=== PATIENT | female | born 1995 | race Caucasian/White ===

== ENCOUNTER 2024-09-22 14:38 | Outpatient (CLI) | payer OTHER, SELFPAY ==
--- NOTE | ~2024-09-22 | US_ITS ---
EXAMINATION: US OB <=14 wk fetus w TV DATE: 09/22/2024 15:45 INDICATION: Encounter for supervision of normal first trimester . Establish dating of pregna ncy. TECHNIQUE: Real-time pelvic ultrasound utilizing both a transvaginal and transabdominal probe was pe rformed. The interpreting radiologist was not present for the study. COMPARISON: None. FINDINGS: The uterus measures 11.1 x 6.7 x 5.1 cm. There is an intrauterine gestational sac. A yolk sac and fe andrés pole are identified. The crown rump length measures 10 mm, which correlates with an estimated ges tational age of 6 weeks and 6 days. heart motion is identified measuring 130 beats per minute ( bpm) by M-mode Doppler. The right ovary is not visualized. The left ovary measures 3.4 x 2.8 x 2.1 cm. And 1.3 similar anecho ic likely corpus luteum cyst in the left ovary. There is no free fluid in the pelvis. IMPRESSION: 1. Single living fetus with a heart rate of 130 bpm. 2. Gestational age by ultrasound of 6 weeks 6 day(s) +/- 4 day(s) with ultrasound estimated date of delivery (ROBERT) of 05/12/2025. Reviewed, dictated and finalized at location B. IMPRESSION: 1. Single living fetus with a heart rate of 130 bpm. 2. Gestational age by ultrasound of 6 weeks 6 day(s) +/- 4 day(s) with ultraso und estimated date of delivery (ROBERT) of 05/12/2025.
--- OUTSIDE RECORDS SUMMARY | 2024-09-22 15:58 | XMS_ITS | Encounter Summary ---
Author Organization [facility] Address 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
--- OUTSIDE RECORDS SUMMARY | 2024-09-22 15:58 | XMS_ITS | Clinical Summary ---
Author Organization [facility] Address [address] [place] [address] Phone Care Team Providers Care Coil Shaper Name Role Phone Rabia Roblero MD Primary Care Provider Allergies Active Allergy Reactions Criticality Noted Date Comments Lamotrigine Hives High 04/07/2019 Medications norgestimate-et hinyl estradioL (ORTHO TRI-CYCLEN) 0.18/0.215/0.25 mg-35 mcg (28) tablet Take 1 Tablet by mouth daily. 84 Tablet 3 3 Active metroNIDAZOLE (METROGEL) 0.75 % (37.5mg/5 gram) vaginal gel Insert 5 grams daily at bedtime for 5 nights 70 Gram 4 Active fluconazole (DIFLUCAN) 150 mg tablet Take 1 tab (150 mg) by mouth on day one. Take additional tab (150 mg) by mouth 3 days after initial dose 2 Tablet 4 Active Active Problems No known active problems Encounters Date Type Department Care Team Description 09/04/2024 External Device Data [facility]STRACTION Provider, Abstract 09/03/2024 External Device Data [facility] Provider, Abstract 08/31/2024 External Device Data [facility] Provider, Abstract 08/17/2024 External Device Data [facility] Provider, Abstract 07/22/2024 External Device Data [facility] Provider, Abstract 07/21/2024 External Device Data [facility] Provider, Abstract 07/20/2024 External Device Data [facility] Provider, Abstract from Last 3 Months Family History Medical History Relation Name Comments Ovarian Cancer Maternal Grandmother Relation Name Status Comments Maternal Grandmother Social History Tobacco Use Types Packs/Day Years Used Date Smoking Tobacco: Never Passive Smoke Exposure: Never Smokeless Tobacco: Never Tobacco Cessation:Counseling Given: Not Answered Alcohol Use Standard Drinks/Week Comments Yes 2 (1 standard drink = 0.6 oz pur e alcohol) Socially Comments No Sex and Gender Information Value Date Recorded Sex Assigned at Not on file 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 Gender Identity Not on file Sexual Orientation Not on file Last Filed Vital Signs Vital Sign Reading Time Taken Comments Blood Pressure 124/74 05/25/2024 11:21 AM AUTO ELECTRICAL TECHNICIAN Pulse - - Temperature - - Respiratory Rate - - Oxygen Saturation - - Inhaled Oxygen Concentration - - Weight 103.2 kg (227 lb 9.6 oz) 024 11:21 AM AUTO ELECTRICAL TECHNICIAN Height 166 cm (5' 5.35 ) 05/25/2024 11: 21 AM AUTO ELECTRICAL TECHNICIAN Body Mass Index 37.47 05/25/2024 11:21 AM AUTO ELECTRICAL TECHNICIAN Plan of Treatment Health Maintenance Due Date Last Done Comments HEPATITIS B VACCINES (1 of 3 - 19+ 3-dose series) 2012 DTAP/TDAP/TD VACCINES (2 - Td or Tdap) 10/21/2021 10/22/2011 HPV/Cotest 2023 INFLUENZA VACCINE (#1) 2024 , 04/13/2019, 05/15/2018, Additional history exists COVID-19 Vaccine ( season) 2024 04/12/2021 CERVICAL CANCER SCREENING 05/25/2027 PAP SMEAR 05/25/2027 05/25/2024, 12/28, 04/07/2019 PAP SMEAR 05/25/2027 05/25/2024, 12/28, 04/07/2019 HPV VACCINES Aged Out No longer eligi ble based on patient's age to complete this topic Procedures Procedure Name Priority Date/Time Associated Diagnosis Comments CERV/VAG CYTO AGE BASED SCREEN PAP Routine 05/25/2024 11:40 AM AUTO ELECTRICAL TECHNICIAN Encounter for gynecological examination without abnormal finding from Last 3 Months or Most Recently Relevant to Health Maintenance Results * CERV/VAG CYTO AGE BASED SCREEN PAP (05/25/2024 11:40 AM AUTO ELECTRICAL TECHNICIAN) COMMENT (PAP): [facility] [place] Comment: This order for age-based cervical cancer and STI screening follows ACOG guidelines(PB 168, 140, FKN121). See individual assays for performing site location. CLINICAL INFORMATION [facility] [place] Comment:None given LAST MENSTRUAL PERIOD [facility] [place] Comment:05/04/24 PREV PAP: [facility] [place] Comment:None given PREV BX: [facility] [place] Comment:None given SOURCE [facility] [place] Comment:Endocervix ADEQUACY: [facility] [place] Comment: Satisfactory for evaluation. Endocervical/transformation zone component absent. PAP INTERP [facility] [place] Comment: Cytology Results: Negative for intraepithelial lesion or malignancy. CYTOLOGY INFECTION [facility] [place] Comment: Shift in vaginal nancy suggestive of bacterial vaginosis. COMMENT (PAP TEST) [facility] [place] Comment: This Pap test has been evaluated with computer assisted technology. FURNACE DOOR TENDER: est [facility] [place] Comment: LMT, CT(ASCP) CT screening location: [place] [address] [place] [address] REVIEW FURNACE DOOR TENDER: [facility] Comment: CALL, CT(ASCP) CT Screening location: [facility] [address] [place] [address] [address] [facility] Comment: EXPLANATORY NOTE: The Pap is a screening test for cervical cancer. It is not a diagnostic test and is subject to false negative and false positive results. It is most reliable when a satisfactory sample, regularly obtained, is submitted with relevant clinical findings and history, and when the Pap result is evaluated along with historic and current clinical information. HPV E6/E7 Not Detected Not Detected [facility] [place] Comment: Methodology: Firmware Manager-Mediated Amplification This assay detects E6/E7 viral messenger RNA (mRNA) from 14 high-risk HPV types (16,18,31,33,35,39,45,51,52,56,58,59,66,68). Cervical sources are required for HPV testing. If a vaginal source from a patient who has had a total hysterectomy with removal of cervix was submitted, please contact the testing laboratory for alternative testing options. For additional information, please refer to http://education.Trendient/faq/MEF292q2 (This link if provided for information/ educational purposes only.) [facility] Performed [facility]: [facility] [address] [phone] Arnold Sanchez MD SL Genital SWAB OF ENDOCERVIX / Unknown 05/25/2024 11:40 AM AUTO ELECTRICAL TECHNICIAN 05/26/2024 2:14 AM AUTO ELECTRICAL TECHNICIAN us Dagmar Zavala MD PATHOLOGY/CYTOLOGY ORDERAB LES Final Result [facility] [phone] [facility] [address] [phone] from Last 3 Months or Most Recently Relevant to Health Maintenance Insurance [employer] [id number] Care Teams Coil Shaper Relationship Specialty Start Date End Date Rabia Roblero MD PCP - General Internal Medicine 04/07/19
--- OUTSIDE RECORDS SUMMARY | 2024-09-22 15:58 | XMS_ITS | Encounter Summary ---
Author Organization [facility] Address 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
--- OUTSIDE RECORDS SUMMARY | 2024-09-22 15:58 | XMS_ITS | Clinical Summary ---
Author Organization [facility] Address [address] [facility], [facility] [address] [place] [address] Phone Care Team Providers Care Tank Officer Name Role Phone Nicko Hameed MD Unavailable Nadia Liu Primary Care Provider + Allergies Active Allergy Reactions Criticality Noted Date Comments Lamotrigine Rash 05/15/2018 Medications Multiple Vitamin (MULTIVITAMIN PO) Take by mouth. Activ e Lactobacillus (PROBIOTIC ACIDOPHILUS PO) Take by mouth. Active Albuterol-Budeso nide (Airsupra) 90-80 MCG/ACT Aerosol take 2 Puffs by inhalation every 4 hours as needed (shortness of breath, cough or wheezing). 1 g 5 Active Benzonatate 200 MG Capsule Take 1 Capsule by mouth 3 times daily as needed for Cough. 30 Capsule 5 Active albuterol 108 (90 Base) MCG/ACT Aerosol Solution take 2 Puffs by inhalation every 4 hours as needed for Wheezing. 18 g 5 Active Active Problems Problem Noted Date Diagnosed Date Attention deficit hyperactivity disorder, inatte ntive type 06/26/2018 Adjustment disorder with anxiety 06/26/2018 BMI 39.0-39.9,adult 05/15/2018 Resolved Problems Problem Noted Date Diagnosed Date Resolved Date Acute appendicitis with loca lized peritonitis, without perforation, abscess, or gangrene 07/21/2021 07/22/2021 Encounters Date Type Department Care Team Description 09/13/2024 Travel 08/27/2024 Results Follow-Up [facility] [address] [place] [address] Nadia Liu PAC 08/27/2024 Travel 08/27/2024 Telephone [facility] [address] [place] [phone] Nadia Liu PAC Follow-up 08/12/2024 10:00 AM DIRECTOR TRIAL Office Visit [facility] [address] [place] [address] Nadia Liu PAC Pneumonia of both lungs due to infectious organism, unspecified part of lung (Primary Dx) Discharge Disposition: Discharged to home or Selfcare 08/12/2024 Telephone [facility] [address] [place] [phone] Nadia Liu PAC Medication Management 08/10/2024 Travel from Last 3 Months Immunizations Immunization Administration Dates Next Due Covid-19, Mrna, Lnp-s, Pf, 3 0 Mcg/0.3 Ml Dose ([employer]) 04/12/2021 Influenza Vaccine greater than 3 yrs 03/31/2014 Influenza Vaccine, Quadrivalent, PF 04/03/2020,1 ,05/15/2018 Influenza, Injectable, Quadrivalent 03/31/2016 TDAP Vaccine 10/22/2011 Family History Medical History Relation Name Comments No Known Problems Brother Hypertension Father Hypertension Maternal Grandfather Ovarian Cancer Maternal Grandmother No Known Problems Mother No Known Problems Paternal Grandfather Relation Name Status Comments Brother Alive Father Alive Maternal Grandfather Maternal Grandmother Mother Alive Paternal Grandfather Paternal Grandmother Social History Tobacco Use Types Packs/Day Years Used Date Smoking Tobacco: Never Smokeless Tobacco: Never Tobacco Cessation:Counseling Given: Not Answered Alcohol Use Standard Drinks/Week Comments Yes 0 (1 standard drink = 0.6 oz pur e alcohol) weekend drinker [facility] Utilities Answer Date Recorded In the past 12 months has [employer] gas, oil, or water [employer] threatened to shut off services in your home? No 08/10/2024 Social Connection and Isolat ion Panel [NHANES] Answer Date Recorded In a typical week, how many times do you talk on the phone with family, friends, or neighbors? More than three times a week 08/10/2024 How often do you get togethe r with friends or relatives? More than three times a week 08/10/2024 How often do you attend chur ch or hindu services? Never 08/10/2024 Do you belong to any clubs o r organizations such as sikh groups, unions, fraternal or athletic groups, or school groups? No 08/10/2024 How often do you attend meet ings of the clubs or organizations you belong to? Never 08/10/2024 Are you , , di vorced, , never , or living with a partner? Never 08/10/2024 AUDIT-C Answer Date Recorded Q1: How often do you have a drink containing alc ohol? 2-3 times a week 08/10/2024 Q2: How many drinks containi ng alcohol do you have on a typical day when you are drinking? 1 or 2 08/10/2024 Q3: How often do you have si x or more drinks on one occasion? Less than monthly 08/10/2024 Overall Financial Resource Strain (CARDIA) Answe r Date Recorded How hard is it for you to pa y for the very basics like food, housing, medical care, and heating? Not hard at all 08/10/2024 PHQ-2 Answer Date Recorded Total Score - Questions 1-9 0 07/31 [facility] - Occupational Stress Questionnaire Answer Date Recorded Do you feel stress - tense, restless, nervous, or anxious, or unable to sleep at night because your mind is troubled all the time - these days? Not at all 08/10/2024 Exercise Vital Sign Answer Date Recorde d On average, how many days pe r week do you engage in moderate to strenuous exercise (like a brisk walk)? 4 days 08/10/2024 On average, how many minutes do you engage in exercise at this level? 60 min 08/10/2024 Hunger Vital Sign Answer Date Recorded Within the past 12 months, y ou worried that your food would run out before you got the money to buy more. Never true 08/10/19 25 Within the past 12 months, t he food you bought just didn't last and you didn't have money to get more. Never true 08/10/2024 PRAPARE - Transportation Answer Date Re corded In the past 12 months, has l ack of transportation kept you from medical appointments or from getting medications? No 07/31 In the past 12 months, has l ack of transportation kept you from meetings, work, or from getting things needed for daily living? No 08/10/2024 Housing Stability Vital Sign Answer Aris e Recorded In the last 12 months, was t here a time when you were not able to pay the mortgage or rent on time? No 08/10/2024 In the past 12 months, how m any times have you moved where you were living? 0 08/10/2024 At any time in the past [address] [facility], were you homeless or living in a group home (including now)? No 08/10/2024 Education Answer Date Recorded What is the highest level of school you have completed or the highest degree you have received? Associate degree: occupational, technical, or vocational program 08/27/2022 Sexually Active Control Partners Comments Not Currently Male Comments No Sex and Gender Information Value Date Recorded Sex Assigned at Not on file Legal Sex Female 2:45 PM DIRECTOR TRIAL Gender Identity Not on file Sexual Orientation Not on file Last Filed Vital Signs Vital Sign Reading Time Taken Comments Blood Pressure 118/84 08/12/2024 9:57 AM DIRECTOR TRIAL Pulse 69 08/12/2024 9:57 AM DIRECTOR TRIAL Temperature 36.6 C (97.8 F) 08/12/2024 9:57 AM DIRECTOR TRIAL Respiratory Rate 14 04/30/2024 11:48 AM CDT Oxygen Saturation 100% 08/12/2024 9:57 AM DIRECTOR TRIAL Inhaled Oxygen Concentration - - Weight 99.8 kg (220 lb) 08/12/2024 9:57 AM DIRECTOR TRIAL Height 165.1 cm (5' 5 ) 08/12/2024 9:57 AM DIRECTOR TRIAL Body Mass Index 36.61 08/12/2024 9:57 AM DIRECTOR TRIAL Plan of Treatment Upcoming Encounters Date Type Department Care Team (Late st Contact Info) Description 11/04/2024 10:45 AM CDT Office Visit [facility] [address] [place] [address] Nadia Liu, PAC [address] [place] [address] Health Maintenance Due Date Last Done Comments Hepatitis C Virus (HCV) Screening 1993 Hepatitis B Immunization (1 of 3 - 19+ 3-dose series) 2012 Td Immunization Every 10 Years (Adults With 1 Tdap) 10/21/2021 10/22/2011 Pap Smear 04/07/2022 04/07/2019 Influenza Immunization (#1) 02/29/202410/2019, 04/13/2019, 05/15/2018, Additional history exists SARS-COV-2 Immunization ( - 2023- season) 2024 04/12/2021, 03/14/2021 Cervical Cancer Screening (CCS) 05/25/2029 HPV/Cotest 05/25/2029 05/25/2024 Respiratory Syncytial Virus (RSV) Immunization (Adult) (1 - 1-dose 75+ series) 2068 Meningococcal Immunization (ACWY) Aged Out No longer eligible based on patient's age to complete this topic Pneumococcal Immunization Combined Aged Out No longer eligible based on patient's age to complete this topic Rotavirus Immunization Aged Out No lo nger eligible based on patient's age to complete this topic Procedures Procedure Name Priority Date/Time Associated Diagnosis Comments RUBELLA IGM ANTIBODY - TORCH Routine 09/13/2024 11:09 AM CDT Amenorrhea RUBELLA IGG ANTIBODY - TORCH Routine 09/13/2024 11:09 AM CDT Amenorrhea HSV TYPE II IGG ANTIBODY Routine 09/13/2024 11:09 AM CDT Amenorrhea HSV TYPE I IGG ANTIBODY Routine 09/13/2024 11:09 AM CDT Amenorrhea CMV IGM ANTIBODY - TORCH Routine 09/13/2024 11:09 AM CDT Amenorrhea CMV IGG ANTIBODY - TORCH Routine 09/13/2024 11:09 AM CDT Amenorrhea TYPE & SCREEN (CROSSMATCH CONVERTIBLE) Routine 09/13/2024 11:09 AM CDT Amenorrhea [facility]/DM TOXOPLASMA AB IGM LAB TEST Routine 09/13/2024 11:09 AM CDT Amenorrhea [facility]/DM AB TOXOPLASMA, IGG LAB TEST Routine 09/13/2024 11:09 AM CDT Amenorrhea COMPLETE BLOOD COUNT (CBC) WITHOUT DIFF Routine 09/13/2024 11:09 AM CDT Amenorrhea HIV 1 & 2 ANTIBODY & ANTIGEN SCREEN Routine 09/13/2024 11:09 AM CDT Amenorrhea HCG BETA SUBUNIT SERUM QUANT Routine 09/13/2024 11:09 AM CDT Amenorrhea TORCH ANTIBODY PANEL Routine 09/13/2024 11:09 AM CDT Amenorrhea RPR SCREEN ONLY Routine 09/13/2024 11:09 AM CDT Amenorrhea HEPATITIS B SURFACE ANTIGEN (HBSAG) Routine 09/13/2024 11:09 AM CDT Amenorrhea PARVOVIRUS B19 PCR, PARVP Routine 09/13/2024 11:09 AM CDT Amenorrhea HERPES ZOSTER (VARICELLA) IGG Routine 09/13/2024 11:09 AM CDT Amenorrhea CULTURE, URINE Routine 09/13/2024 11:09 AM CDT Amenorrhea PROGESTERONE Routine 08/30/2024 11:08 AM DIRECTOR TRIAL Amenorrhea PROGESTERONE Routine 08/30/2024 11:08 AM DIRECTOR TRIAL Amenorrhea HCG BETA SUBUNIT SERUM QUANT Routine 08/30/2024 11:08 AM DIRECTOR TRIAL Amenorrhea HCG BETA SUBUNIT SERUM QUANT Routine 08/27/2024 12:49 PM DIRECTOR TRIAL Amenorrhea from Last 3 Months Results * HIV 1 & 2 ANTIBODY & ANTIGEN SCREEN (09/13/2024 11:09 AM CDT) HIV 1 & 2 ANTIBODY & ANTIGEN SCREEN NON DETECTED NON DETECTED 09/13/2024 11:45 PM CDT [facility] Blood Venipuncture / Unknown 09/13/2024 11:09 AM CDT 09/13/2024 11:40 AM CDT us Alton Gonzalez MD LAB SEND OUTS Final Re sult [facility] [address] [place] [address], * RUBELLA IGM ANTIBODY - TORCH (09/13/2024 11:09 AM CDT) RUBELLA IGM <0.2 <1.1 AI 09/14/2024 12:00 AM CDT [facility] Comment: <0.8 Negative. No detectable Rubella IgM antibody. 0.9-1.0 Equivocal >= 1.1 Positive Without a history of exposure to rubella or symptoms consistent with rubella, the rubella IgM result is difficult to interpret. False-positive serum rubella IgM tests may occur due to the cross reaction with rheumatoid factor or other viral infections. Rubella IgM may also persist for more than 12 months after vaccination or natural infection. Avidity testing and detection of wild-type rubella virus can be used to resolve uncertainties in the serological evaluation of suspected cases. For a serological diagnosis of congenital rubella in the period, antibody to rubella virus should be measured in both and maternal sera. If IgM is detected in a infant's serum, it is probable that transplacental rubella infection has occurred. Antibody testing was performed by multiplex flow immunoassay on the [employer] platform. Blood Venipuncture / Unknown 09/13/2024 11:09 AM CDT 09/13/2024 11:40 AM CDT Alton Gonzalez MD CHEMISTRY ORDERABLES Fin al Result [facility] [address] [place] [address], [place] * (ABNORMAL) RUBELLA IGG ANTIBODY - TORCH (09/13/2024 11:09 AM CDT) RUBELLA IMMUNITY Nonimmune( A) Immune, Invalid 09/14/2024 5:27 AM CDT [facility] Blood Venipuncture / Unknown 09/13/2024 11:09 AM CDT 09/13/2024 11:40 AM CDT Narrative [facility] - 09/14/2024 5:27 AM CDT Antibody testing was performed by multiplex flow immunoassay on the [employer] platform. Alton Gonzalez MD CHEMISTRY ORDERABLES Fin al Result Performing Organization Address [facility] Co de Phone Number [facility] [address] [place] [address], [place] * HSV TYPE II IGG ANTIBODY (09/13/2024 11:09 AM CDT) HSV TYPE 2 IGG AB <0.2 <1.1 AI 09/14/2024 12:01 AM CDT [facility] Comment: <0.9 Negative. No detectable HSV-2 IgG antibody. 0.9 - 1.0 Equivocal >=1.1 Positive Antibody testing was performed by multiplex flow immunoassay on the [employer] platform. Blood Venipuncture / Unknown 09/13/2024 11:09 AM CDT 09/13/2024 11:40 AM CDT Alton Gonzalez MD CHEMISTRY ORDERABLES Fin al Result [facility] [address] [place] [address], [place] * HSV TYPE I IGG ANTIBODY (09/13/2024 11:09 AM CDT) HSV TYPE 1 IGG AB <0.2 <1.1 AI 09/14/2024 12:01 AM CDT [facility] Comment: <0.9 Negative. No detectable HSV-1 IgG antibody. 0.9 - 1.0 Equivocal >=1.1 Positive Antibody testing was performed by multiplex flow immunoassay on the [employer] platform. Blood Venipuncture / Unknown 09/13/2024 11:09 AM CDT 09/13/2024 11:40 AM CDT Alton Gonzalez MD CHEMISTRY ORDERABLES Fin al Result Performing Organization Address City/[facility]/ZIP Co de Phone Number [facility] [address] [place] [address], [place] * CMV IGM ANTIBODY - TORCH (09/13/2024 11:09 AM CDT) CMV IgM <0.2 <1.1 AI 09/14/2024 12:00 AM CDT [facility] Comment: <= 0.8 Negative. No detectable CMV IgM antibody. 0.9 - 1.0 Equivocal >=1.1 Positive Antibody testing was performed by multiplex flow immunoassay on the [employer] platform. Blood Venipuncture / Unknown 09/13/2024 11:09 AM CDT 09/13/2024 11:40 AM CDT Alton Gonzalez MD CHEMISTRY ORDERABLES Fin al Result [facility] [address] [place] [address], [place] * CMV IGG ANTIBODY - TORCH (09/13/2024 11:09 AM CDT) CMV IgG <0.2 AI 09/14/2024 12:00 AM CDT [facility] Comment: <= 0.8 Negative. No detectable CMV IgG antibody. 0.9 - 1.0 Equivocal >=1.1 Positive Antibody testing was performed by multiplex flow immunoassay on the [email or web address] platform. Blood Venipuncture / Unknown 09/13/2024 11:09 AM CDT 09/13/2024 11:40 AM CDT Alton Gonzalez MD CHEMISTRY ORDERABLES Fin al Result [facility] [address] [place] [address], * PARVOVIRUS B19 PCR, PARVP (09/13/2024 11:09 AM CDT) PARVOVIRUS B19 BY RAPID PCR Negative Negative 09/16/2024 5:04 PM CDT [facility] [place] Comment: ADDITIONAL INFORMATION This assay has only been validated for the detection of genotype 1 parvovirus B19 and its ability to detect the less common genotypes 2 and 3 is unknown. This test was developed and its performance characteristics determined by [facility] in a manner consistent with CLIA requirements. This test has not been cleared or approved by the U.S. Food and Drug Administration. SOURCE PLASMA 09/16/2024 5:04 PM CDT [facility] Comment: Test Performed by: [facility] [address] Tire Wrapper: Long Sousa Ph.D.; CLIA# [id number] Blood Venipuncture / Unknown 09/13/2024 11:09 AM CDT 09/13/2024 11:39 AM CDT Alton Gonzalez MD LAB SEND OUTS Final Re sult [facility] * HERPES ZOSTER (VARICELLA) IGG (09/13/2024 11:09 AM CDT) VARICELLA ZOSTER IGG 1.3 >=1.1 AI 09/14/2024 12:00 AM CDT [facility] Blood Venipuncture / Unknown 09/13/2024 11:09 AM CDT 09/13/2024 11:40 AM CDT Narrative [facility] - 09/14/2024 12:00 AM CDT <= 0.8 Negative. No detectable VZV IgG antibody. 0.9 - 1.0 Equivocal >=1.1 Positive Antibody testing was performed by multiplex flow immunoassay on the [employer] platform. Alton Gonzalez MD IMMUNOLOGY ORDERABLES Fi nal Result [facility] [address] [place] [address], * TYPE & SCREEN (CROSSMATCH CONVERTIBLE) (09/13/2024 11:09 AM CDT) ABO TYPING O 09/13/2024 1:19 PM CDT [facility] BLOOD BANK RH Positive 09/13/2024 1:19 PM CDT [facility] BLOOD BANK ABSC Negative 09/13/2024 1:19 PM CDT [facility]OD [facility] Blood Venipuncture / Unknown 09/13/2024 11:09 AM CDT 09/13/2024 12:37 PM CDT Alton Gonzalez MD BLOOD BANK ORDERABLES Ed ited Result - Final [facility] BLOOD BANK [address] [place] [address] * TOXOPLASMA ANTIBODY IGM (09/13/2024 11:09 AM CDT) TOXOPLASMA IGM ANTIBODY <3.0 <8.0 AU/mL 09/14/2024 8:58 AM CDT [facility] TOXOPLASMA INTERPRETATION 09/14/2024 8:58 AM CDT [facility] Comment:When Toxoplasma IgG and Toxoplasma IgM results are negative, no serological evidence of infection with Toxoplasma is evident. Blood Venipuncture / Unknown 09/13/2024 11:09 AM CDT 09/13/2024 11:40 AM CDT Narrative [facility] - 09/14/2024 8:58 AM CDT < 8.0 AU/mL Negative >= 8.0 AU/mL Equivocal and < 10 AU/mL >= 10.0 AU/mL Positive Alton Gonzalez MD CHEMISTRY ORDERABLES Fin al Result Performing Organization Address City/[facility] Co de Phone Number [facility] [address] [place] [address], [place] * TOXOPLASMA ANTIBODY IGG (09/13/2024 11:09 AM CDT) TOXOPLASMA IGG ANTIBODY <3.0 IU/mL 09/14/2024 4:05 AM CDT [facility] Comment: <=9 Negative. No detectable T. gondii IgG antibody. 10-11 Equivocal >=12 Positive Antibody testing was performed by multiplex flow immunoassay on the [employer] platform. Blood Venipuncture / Unknown 09/13/2024 11:09 AM CDT 09/13/2024 11:40 AM CDT Alton Gonzalez MD CHEMISTRY ORDERABLES Fin al Result Performing Organization Address [facility] Co de Phone Number [facility] [address] [place] [address], [place] * RPR SCREEN ONLY (09/13/2024 11:09 AM CDT) RPR NONREACTIVE NONREACTIVE 09/14/2024 7:20 AM CDT [facility] Blood Venipuncture / Unknown 09/13/2024 11:09 AM CDT 09/13/2024 11:40 AM CDT Alton Gonzalez MD IMMUNOLOGY ORDERABLES Fi nal Result Performing Organization Address [facility] Co de Phone Number [facility] [address] [place] [address], [place] * HEPATITIS B SURFACE ANTIGEN (HBSAG) (09/13/2024 11:09 AM CDT) Pathologist [facility] HEPATITIS B SURFACE ANTIGEN NON DETECTED NON DETECTED 09/13/2024 12:50 PM CDT [facility] Comment:A nonreactive test r esult does not exclude the possibility of exposure to or infection with Hepatitis B virus. A nonreactive test result in individuals with prior exposure to hepatitis B may be due to antigen levels below the detection limit of this assay or lack of antigen reactivity to the antibodies in this assay. Blood Venipuncture / Unknown 09/13/2024 11:09 AM CDT 09/13/2024 11:40 AM CDT us Alton Gonzalez MD CHEMISTRY ORDERABLES Fin al Result [facility] [address] [place] [address] * (ABNORMAL) COMPLETE BLOOD COUNT (CBC) WITHOUT DIFF (09/13/2024 11:09 AM CDT) [facility] WBC 8.18 4.00 - 12.00 10(3)/mcL 09/13/2024 11:47 AM CDT [facility] RBC 3.66(L) 3.80 - 5.30 10(6)/mcL 09/13/2024 11:47 AM CDT [facility] HEMOGLOBIN (HGB) 11.6(L) 12.0 - 15.8 g/dL 09/13/2024 11:47 AM CDT [facility] HEMATOCRIT (HCT) 35.5(L) 36.0 - 47.0 % 09/13/2024 11:47 AM CDT [facility] MCV 97.0(H) 82.0 - 96.0 fL 09/13/2024 11:47 AM CDT [facility] MCH 31.7 26.0 - 34.0 pg 09/13/2024 11:47 AM CDT [facility] MCHC 32.7 31.0 - 36.0 g/dL 09/13/2024 11:47 AM CDT [facility] PLATELET COUNT 305 140 - 440 10(3)/mcL 09/13/2024 11:47 AM CDT [facility] RDW 13.1 11.8 - 15.5 % 09/13/2024 11:47 AM CDT [facility] MPV 10.8 9.7 - 12.4 fL 09/13/2024 11:47 AM CDT [facility] Blood Venipuncture / Unknown 09/13/2024 11:09 AM CDT 09/13/2024 11:39 AM CDT us Alton Gonzalez MD HEMATOLOGY ORDERABLES Fi nal Result [facility] [address] [place] [address] * (ABNORMAL) HCG BETA SUBUNIT SERUM QUANT (09/13/2024 11:09 AM CDT) Only the most recent of3 resultswithin the time period is included. HCG BETA SUBUNIT, QUANT 25737.59( H) 0.00 - 5.00 mIU/mL 09/13/2024 3:48 PM CDT [facility] Blood Venipuncture / Unknown 09/13/2024 11:09 AM CDT 09/13/2024 11:40 AM CDT Narrative [facility] - 09/13/2024 3:48 PM CDT HCG levels should be interpreted with consideration given to the patient's clinical condition. No currently available hCG test is approved by the FDA for use as a tumor marker. hCG results <5 mIU/mL are considered negative. Weeks post LMP hCG range (mIU/mL) 1 - 10 202 - 231,000 11 - 15 22,536 - 234,990 16 - 22 8,007 - 50,064 23 - 40 1,600 - 49,413 The concentration of hCG in maternal serum rises rapidly in early , hCG levels less than 25 mIU/mL do not exclude . A further sample should be tested after 48 hours if is suspected. Heterophilic antibodies present in the serum of some patients may cause a false positive result in the assay. Before making a diagnosis of malignancy based on elevated hCG, confirm results with a urine hCG. us Alton Gonzalez MD CHEMISTRY ORDERABLES Fin al Result Performing Organization Address City/[facility]/ZIP Co de Phone Number [facility] [address] [place] [address] * CULTURE, URINE (09/13/2024 11:09 AM CDT) CULTURE RESULTS Mixed Growth of One or More Distal Urethral Contaminants 09/14/2024 10:11 PM CDT [facility] Culture URINE SPECIMEN OBTAINED BY CLEAN CATCH PROCEDURE / Unknown Non-Phlebotomy Collection / Unknown 09/13/2024 11:09 AM CDT 09/13/2024 11:41 AM CDT Alton Gonzalez MD MICROBIOLOGY - GENERAL O RDERABLES Final Result Performing Organization Address [facility] Co de Phone Number [facility] [address] [place] [address], * PROGESTERONE (08/30/2024 11:08 AM DIRECTOR TRIAL) PROGESTERONE 25.2 ng/mL 08/30/2024 12:51 PM DIRECTOR TRIAL [facility] Blood Venipuncture / Unknown 08/30/2024 11:08 AM DIRECTOR TRIAL 08/30/2024 12:02 PM DIRECTOR TRIAL Narrative [facility] - 08/30/2024 12:51 PM DIRECTOR TRIAL FEMALE NORMAL RANGE <0.5 NG/ML FOLLICULAR 1.2-15.9 NG/ML LUTEAL <0.5 NG/ML POSTMENOPAUSAL MALE NORMAL RANGE <0.5 NG/ML us Nadia BETHEA CHEMISTRY ORDERABLES Fin al Result Performing Organization Address City/[facility]/ZIP Co de Phone Number [facility] [address] [place] [address] from Last 3 Months Insurance MEDICAID [place] Advance Directives * Full Code (Latest Code Status on File) Date Activated Date Inactivated Comments 07/21/2021 7:14 PM 07/22/2021 3:44 PM CPR-Full Theodore atment: FULL ARREST: Attempt Resuscitation/CPR wit intubation and mechanical ventilation. PRE-ARREST: Use entire range of life support measures to stabilize the patient. * No Code Status Date Activated Date Inactivated Comments 02/03/2020 10:29 AM 07/21/2021 2:43 PM new pharmacy , 02/03/20 Care Teams Tank Officer Relationship Specialty Start Date End Date Nadia Liu PAC [address] [place] [address] PCP - General Physician Water Treatment Plant Repairer 08/12/24 Nicko Hameed MD [address] [address] [id number] Consulting Physician Colon and Rectal Surgery 08/07/21
--- OUTSIDE RECORDS SUMMARY | 2024-09-22 15:58 | XMS_ITS | Encounter Summary ---
Author Organization [facility] Address 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
--- OUTSIDE RECORDS SUMMARY | 2024-09-22 15:58 | XMS_ITS | Clinical Summary ---
Author Organization [address] Address [address] [place] [address] Care Team Providers [employer] Supervisor Name Role Phone Nadia Liu Primary Care Provider Allergies Active Allergy Reactions Criticality Noted Date Comments Lamotrigine Hives,Rash High 05/15/2018 Medications No known medications Active Problems Problem Noted Date Diagnosed Date Hypokalemia 08/08/2024 Pneumonia of left lower lobe due to infectious o rganism 08/07/2024 Encounters Date Type Department Care Team Description 08/07/2024 5:07 PM BUSINESS OBJECTS CONSULTANT - 08/08/2024 3:19 PM BUSINESS OBJECTS CONSULTANT Emergency [facility] Acute Medicine [address] [place] [id number] Magaly Chisholm MD Wala, MD Jean Marie Vance, MD Ralf Elizalde, Grupo De La O Jr., MD Pneumonia of left lower lobe due to infectious organism (Primary Dx); Hypokalemia; Wheezing; Acute hypoxemic respiratory failure (HCC); Fever, unspecified fever cause; Shortness of breath Discharge Disposition: Discharge to home or self care 08/07/2024 2:15 PM BUSINESS OBJECTS CONSULTANT Office Visit [facility] at [address] [place] [phone] Cristal Addison NP Shortness of breath (Primary Dx); Fever, unspecified fever cause; Hypoxemia 07/27/2024 Telephone [facility] Accountable Care Organization [address] [place] [id number] Diandra Morocho MA Unsuccessful Phone Call 1 (AWV SCHEDULING) from Last 3 Months Surgical History Surgery Date Site/Laterality Comments APPENDECTOMY Social History Tobacco Use Types Packs/Day Years Used Date Smoking Tobacco: Never Tobacco Cessation:Counseling Given: Not Answered AUDIT-C Answer Date Recorded Q1: How often do you have a drink containing alc ohol? 2-3 times a week 08/08/2024 Q2: How many drinks containi ng alcohol do you have on a typical day when you are drinking? 1 or 2 08/08/2024 Q3: How often do you have si x or more drinks on one occasion? Never 08/08/2024 Personal Safety Answer Date Recorded Have you ever been in or are you currently in a harmful physical or emotional relationship or is someone making you feel afraid or unsafe? Denies 08/08/2024 Comments No Sex and Gender Information Value Date Recorded Sex Assigned at Not on file Legal Sex Female 12:42 PM BUSINESS OBJECTS CONSULTANT Gender Identity Not on file Sexual Orientation Not on file Obstetrics History Last Filed Vital Signs Vital Sign Reading Time Taken Comments Blood Pressure 114/74 08/08/2024 7:10 AM BUSINESS OBJECTS CONSULTANT Pulse 84 08/08/2024 7:10 AM BUSINESS OBJECTS CONSULTANT Temperature 36.6 C (97.9 F) 08/08/2024 7:10 AM BUSINESS OBJECTS CONSULTANT Respiratory Rate 18 08/08/2024 7:10 AM BUSINESS OBJECTS CONSULTANT Oxygen Saturation 92% 08/08/2024 7:10 AM BUSINESS OBJECTS CONSULTANT Inhaled Oxygen Concentration - - Weight 98.9 kg (218 lb) 08/08/2024 4:39 AM BUSINESS OBJECTS CONSULTANT Height 165.1 cm (5' 5 ) 08/08/2024 4:39 AM BUSINESS OBJECTS CONSULTANT Body Mass Index 36.28 08/08/2024 4:39 AM BUSINESS OBJECTS CONSULTANT Plan of Treatment Health Maintenance Due Date Last Done Comments Cervical Cancer Screening 1993 Depression Screening 1993 Hepatitis C Screening 1993 Varicella Vaccines (1 of 2 - 13+ 2-dose series) 2006 Hepatitis B Screening 2011 Regular Well Visit/Exam 18-64 2011 DTaP/Tdap/Td Vaccine (2 - Td or Tdap) 10/21/2021 10/22/2011 Covid-19 Vaccine (3 - 2023- season) 2024 04/12/2021, 03/14/2021 Influenza Vaccine (#1) 2024 , 04/13/2019, 05/15/2018, Additional history exists HPV Vaccines Aged Out No longer eligi ble based on patient's age to complete this topic Pneumococcal vaccine <65 Aged Out No longer eligible based on patient's age to complete this topic Procedures Procedure Name Priority Date/Time Associated Diagnosis Comments EGFR STAT 08/08/2024 9:14 AM BUSINESS OBJECTS CONSULTANT BASIC METABOLIC PANEL STAT 08/08/2024 9:14 AM BUSINESS OBJECTS CONSULTANT INFLUENZA A/B, RSV, AND COVID-19 PCR STAT 08/08/2024 2:47 AM BUSINESS OBJECTS CONSULTANT URINALYSIS AND REFLEX TO MICROSCOPIC AND CULTURE STAT 08/07/2024 8:47 [address] CHEST PE W CONTRAST ED 8:32 PM BUSINESS OBJECTS CONSULTANT BLOOD CULTURE STAT 08/07/2024 7:31 PM BUSINESS OBJECTS CONSULTANT XR CHEST PA LATERAL 2 VIEWS ED 08/07/2024 7:02 PM BUSINESS OBJECTS CONSULTANT BLOOD CULTURE STAT 08/07/2024 6:05 PM BUSINESS OBJECTS CONSULTANT EGFR STAT 08/07/2024 6:04 PM BUSINESS OBJECTS CONSULTANT DIFFERENTIAL AUTO STAT 08/07/2024 6:0 4 PM BUSINESS OBJECTS CONSULTANT SEPSIS LACTATE WITH REFLEX Routine 08/07/2024 6:04 PM BUSINESS OBJECTS CONSULTANT COMPREHENSIVE METABOLIC PANEL STAT 08/07/2024 6:04 PM BUSINESS OBJECTS CONSULTANT CBC WITH AUTO DIFFERENTIAL STAT 08/07/2024 6:04 PM BUSINESS OBJECTS CONSULTANT POC INFLUENZA A/B, COVID-19 ANTIGEN Routine 08/07/2024 2:36 PM BUSINESS OBJECTS CONSULTANT Shortness of breath from Last 3 Months Results * eGFR (08/08/2024 9:14 AM BUSINESS OBJECTS CONSULTANT) eGFR >90 >=60 mL/min/1. 73 m2 Comment: Interpretive Data Reference Interval Normal >/= 90 mL/min/1.73m2 Mildly decreased* 60 - 89 mL/min/1.73m2 Mildly to moderately decreased 45 - 59 mL/min/1.73m2 Moderately to severely decreased 30 - 44 mL/min/1.73m2 Severely decreased 15 - 29 mL/min/1.73m2 Kidney Failure < 15 mL/min/1.73m2 *Relative to young adult level Estimated glomerular filtration rate is determined by the 2020 CKD-EPI equation recommended by the National Kidney Foundation (A Unifying Approach to GFR Estimation: Recommendations of the NKF-ASK Task Force on Reassessing the Inclusion of Race in Diagnosing Kidney Disease, JASN 2020). The CKD-EPI equation should not be used for patients with unstable renal function and has not been validated in children and those over 70. Current interpretive data was last reviewed 2021. Blood 08/08/2024 9:14 AM BUSINESS OBJECTS CONSULTANT 08/08/2024 9:29 AM BUSINESS OBJECTS CONSULTANT us Grupo Arambula Jr., MD LAB BLOOD ORDERABLE S Final Result [facility] ([place]) 1 [facility] Department [place] [address] * (ABNORMAL) Basic metabolic panel (08/08/2024 9:14 AM BUSINESS OBJECTS CONSULTANT) Sodium 138 135 - 145 mmol/L Potassium, pl 3.2(L) 3.3 - 4.9 mmol/L [facility] ([facility]) Chloride 100 97 - 110 mmol/L [facility] ([facility]) CO2 25 22 - 32 mmol/L [facility] ([place]) Anion gap 13 2 - 15 mmol/L [facility] ([facility]) BUN 5(L) 6 - 25 mg/dL [facility] ([facility]) Creatinine 0.56(L) 0.60 - 1.10 mg/dL [facility] ([facility]) Glucose 158 70 - 199 mg/dL [facility] ([facility]) Comment: Interpretive Data Fasting glucose >/= 126 mg/dl is diagnostic for diabetes. Fasting is defined as no caloric intake for at least 8 hours. Fasting glucose between 100 mg/dl to 125 mg/dl is diagnostic of prediabetes. In a patient with classic symptoms of hyperglycemia or hyperglycemic crisis, a random glucose >/= 200 mg/dl is diagnostic for diabetes. In the absence of unequivocal hyperglycemia, results should be confirmed by repeat testing. The classification and Diagnosis of Diabetes Diabetes Care 2021; 46: S19-S40. Current interpretive data was last revised 2022. Calcium 9.5 8.5 - 10.3 mg/dL [facility] ([place]) Blood 08/08/2024 9:14 AM BUSINESS OBJECTS CONSULTANT 08/08/2024 9:29 AM BUSINESS OBJECTS CONSULTANT us Grupo Arambula Jr., MD LAB BLOOD ORDERABLE S Final Result [facility] ([place]) 1 [facility] Department [place] [address] * Influenza A/B, RSV, and COVID-19 PCR Nasopharyngeal (08/08/2024 2:47 AM BUSINESS OBJECTS CONSULTANT) COVID-19 RNA Negative Negative Influenza A RNA Negative Negative [facility] ([facility]) Influenza B RNA Negative Negative [facility] ([facility]) RSV RNA Negative Negative [facility] ([facility]) Comment: Interpretive data: Testing performed by [facility]. This test is performed using the CitalDoc Xpert Xpress CoV-2/Flu/RSV plus assay. This is a multiplex, real- time reverse transcriptase PCR assay intended for the qualitative detection of nucleic acid from SARS-CoV-2, influenza A, influenza B, and respiratory syncytial virus. This assay has been cleared by the [place] Food and Drug administration. The performance characteristics have been verified by the [facility]. Results must be considered in the clinical context, and a negative result does not rule out infection. Interpretive Data last revised 2023 Nasopharyngeal 08/08/2024 2: 47 AM BUSINESS OBJECTS CONSULTANT 08/08/2024 2:56 AM BUSINESS OBJECTS CONSULTANT Narrative [facility] ([place]) - 08/08/2024 3:51 AM BUSINESS OBJECTS CONSULTANT Is the Patient experiencing symptoms consistent with COVID?->Yes us Roger Aj MD LAB MICROBIOLOGY - GENE RAL ORDERABLES Final Result Performing Organization Address City/[facility]/ZIP Co de Phone Number [facility] ([place]) 1 [facility] Department [place] [address] * (ABNORMAL) Urinalysis reflex to microscopic and culture Urine (08/07/2024 8:47 PM BUSINESS OBJECTS CONSULTANT) Color, ur Straw Yellow Clarity, ur Clear Clear [facility] ([place]) Specific gravity, ur 1.003 1.003 - 1.030 [facility] ([place]) pH, urine 6.5 [facility] ([place]) Comment: Interpretive Data U rine pH is affected by diet, medications, systemic acid-base disturbances, and renal tubular function. pH may affect urinary stone formation. For example, urine pH below 6.0 may help reduce the tendency for calcium phosphate stones and pH greater than 6.0 may reduce the tendency for uric acid stone formation. Source: [facility] [place] Current Interpretive Data was last revised on 2017 Protein, ur ql Negative Negative [facility] ([place]) Glucose, ur ql Negative Negative [facility] ([facility]) Ketones, ur 1+(A) Negative [facility] ([facility]) Bilirubin, ur Negative Negative [facility] ([facility]) Blood, ur Negative Negative [facility] ([facility]) Urobilinogen, ur <2.0 <2.0 mg/dL [facility] ([place]) Nitrite, ur Negative Negative [facility] ([facility]) Leukocyte esterase, ur Negative Negative [facility] ([place]) UA reflex comment Reflex conditions for microscopic UA and culture not met. [facility] ([place]) Urine 08/07/2024 8:47 PM BUSINESS OBJECTS CONSULTANT 08/07/2024 9:01 PM BUSINESS OBJECTS CONSULTANT Narrative [facility] ([place]) - 08/07/2024 9:25 PM BUSINESS OBJECTS CONSULTANT If patient unable to urinate, straight cath us Magaly Chisholm MD LAB MICROBIOLOGY - GENERA L ORDERABLES Final Result [facility]) [address] Department [place] [address] * CT Chest PE (CTA) W Contrast (08/07/2024 8:32 PM BUSINESS OBJECTS CONSULTANT) Anatomical Region Laterality Modality Body N/A Computed Tomogra phy 08/07/2024 10:0 6 PM BUSINESS OBJECTS CONSULTANT Narrative 08/07/2024 10:12 PM BUSINESS OBJECTS CONSULTANT EXAM DESCRIPTION: CT CHEST PE (CTA) W CONTRAST REASON FOR STUDY: Pulmonary embolism (PE) suspected, high prob Shortness of breath for several days with a cough. TECHNIQUE: CT angiogram of the chest performed with intravenous contrast using helical scanning technique with dynamic intravenous contrast injection. Reconstructed coronal and sagittal MPR images reviewed. All images stored on PACS. 3D MIP images rendered on scanning unit and reviewed at time of interpretation. Automated exposure control was used as a dose optimization technique for this examination. CONTRAST TYPE/DOSE: 75mL of IOVERSOL 350 MG IODINE/ML INTRAVENOUS SYRINGE injected via intravenous COMPARISON: None FINDINGS: VASCULATURE: The examination is limited for determination of pulmonary embolus due to a poorly timed contrast bolus. No central embolus is seen. No determination can be made as to the possibility of segmental or subsegmental emboli due to the mixing of opacified and unopacified blood. LUNGS: There is dense airspace consolidation with air bronchograms as well as reticulonodular infiltrates in the inferior left upper lobe and lingula. Airspace consolidation with air bronchograms also present within the right upper lobe with reticulonodular infiltrates right upper lobe and left lower lobe characteristic of extensive bilateral pneumonia. No pulmonary mass. PLEURA: Small left pleural effusion. No pneumothorax. MEDIASTINUM/SHANI: There is adenopathy in the prevascular space measuring 2.4 cm x 1.3 cm. In the subcarinal space, there is adenopathy measuring 2.5 cm x 1.6 cm. Small hiatal hernia. HEART: Heart size is normal with no pericardial effusion. AXILLA: No adenopathy. CHEST WALL: No masses. No subcutaneous air. HARDWARE/LINES/TUBES: None. UPPER ABDOMEN: No significant abnormality. MUSCULOSKELETAL: No significant abnormality. OTHER: No significant abnormality. IMPRESSION: The examination is limited for determination of pulmonary embolus due to a poorly timed contrast bolus. No central embolus is seen. No determination can be made as to the possibility of segmental or subsegmental emboli due to the mixing of opacified and unopacified blood. Dense airspace consolidation with air bronchograms as well as reticulonodular infiltrates in the inferior left upper lobe and lingula. Airspace consolidation with air bronchograms also present within the right upper lobe with reticulonodular infiltrates right upper lobe and left lower lobe characteristic of extensive bilateral pneumonia. Small left pleural effusion. Mediastinal lymphadenopathy. Small hiatal hernia. THIS IS AN ELECTRONICALLY VERIFIED FINAL REPORT 08/07/2024 10:12 PM - Electronically signed by Emmanuel Villa M.D. KT: MARCO Report ID: [id number] Reading Location: [id number] Procedure Note Emmanuel Villa MD - 08/07/2024 EXAM DESCRIPTION: CT CHEST PE (CTA) W CONTRAST REASON FOR STUDY: Pulmonary embolism (PE) suspected, high prob Shortness of breath for several days with a cough. TECHNIQUE: CT angiogram of the chest performed with intravenous contrastusing helical scanning technique with dynamic intravenous contrast injection. Reconstructed coronal and sagittal MPR images reviewed. All images storedon PACS. 3D MIP images rendered on scanning unit and reviewed at time of interpretation. Automated exposure control was used as a doseoptimization technique for this examination. CONTRAST TYPE/DOSE: 75mL of IOVERSOL 350 MG IODINE/ML INTRAVENOUSSYRINGE injected via intravenous COMPARISON: None FINDINGS: VASCULATURE: The examination is limited for determination of pulmonary embolus due to a poorly timed contrast bolus. No central embolus is seen.No determination can be made as to the possibility of segmental orsubsegmental emboli due to the mixing of opacified and unopacified blood. LUNGS: There is dense airspace consolidation with air bronchograms aswell as reticulonodular infiltrates in the inferior left upper lobe andlingula. Airspace consolidation with air bronchograms also present within the right upper lobe with reticulonodular infiltrates right upper lobe and leftlower lobe characteristic of extensive bilateral pneumonia. No pulmonary mass. PLEURA: Small left pleural effusion. No pneumothorax. MEDIASTINUM/SHANI: There is adenopathy in the prevascular space measuring2.4 cm x 1.3 cm. In the subcarinal space, there is adenopathy measuring 2.5cm x 1.6 cm. Small hiatal hernia. HEART: Heart size is normal with no pericardial effusion. AXILLA: No adenopathy. CHEST WALL: No masses. No subcutaneous air. HARDWARE/LINES/TUBES: None. UPPER ABDOMEN: No significant abnormality. MUSCULOSKELETAL: No significant abnormality. OTHER: No significant abnormality. IMPRESSION: The examination is limited for determination of pulmonary embolus due toa poorly timed contrast bolus. No central embolus is seen. No determinationcan be made as to the possibility of segmental or subsegmental emboli due tothe mixing of opacified and unopacified blood. Dense airspace consolidation with air bronchograms as well asreticulonodular infiltrates in the inferior left upper lobe and lingula. Airspace consolidation with air bronchograms also present within the right upperlobe with reticulonodular infiltrates right upper lobe and left lower lobe characteristic of extensive bilateral pneumonia. Small left pleural effusion. Mediastinal lymphadenopathy. Small hiatal hernia. THIS IS AN ELECTRONICALLY VERIFIED FINAL REPORT 08/07/2024 10:12 PM - Electronically signed by Emmanuel Villa M.D. KT: MARCO Report ID: [id number] Reading Location: [id number] Magaly Chisholm MD IMG CT PROCEDURES Final R esult * Blood culture Blood Peripheral (08/07/2024 7:31 PM BUSINESS OBJECTS CONSULTANT) Report Final Report: No growth Comment:Testing performed by : [facility], [address] [facility], [place]., [address] Blood (Peripheral) 08/07/2024 7:31 PM BUSINESS OBJECTS CONSULTANT 08/07/2024 10:34 PM BUSINESS OBJECTS CONSULTANT [facility] ([place]) - 08/12/2024 7:00 AM BUSINESS OBJECTS CONSULTANT Draw Blood cultures before administration of Antibiotics Collection->Peripheral 1. Blood cultures are incubated for 4 days on a continuously monitored blood culture system. The first report of a negative culture is issued within 24 hours of receipt of the specimen in the laboratory. 2. Positive culture results are reported as soon as they are detected. 3. The most important factor for detection of microbes in the setting of bloodstream infection is the volume of blood submitted for culture. Failure to collect an optimal blood volume can result in false negative blood cultures. 4. For pediatric patients, the recommended blood volume to collect follows a weight based strategy. See the electronic test catalog for collection instructions. 5. For positive blood cultures, a rapid molecular test may be performed for organism identification using the zarina ePlex blood culture identification panel for gram positive (BCID-GP) and gram negative (BCID-GN) organisms. This nucleic acid amplification test detects microbial DNA in positive blood culture broth. This assay has been cleared by the [place] Food and Drug Administration and its performance characteristics have been verified by the [facility]. For questions about this culture, contact the Microbiology Laboratory at [phone]. Interpretive data was last revised on 24. Magaly Chisholm MD LAB MICROBIOLOGY - GENERA L ORDERABLES Final Result [facility] [place] 1 [facility] Department [place] [address] * XR Chest PA Lateral 2 Views (08/07/2024 7:02 PM BUSINESS OBJECTS CONSULTANT) Anatomical Region Laterality Modality Body, Chest N/A Computed Radiogr aphy 08/07/2024 8:10 PM BUSINESS OBJECTS CONSULTANT Narrative 08/07/2024 8:15 PM BUSINESS OBJECTS CONSULTANT EXAM DESCRIPTION: XR CHEST PA LATERAL 2 VIEWS REASON FOR STUDY: possible infection C/o fevers, chills, headache, fatigue, cough and slight SOB x 8 Days. Pt was seen at today where she had a negative flu/covid. Pt reports she was given a breathing tx and tylenol at urgent care because her Sp02 was 88-89%. Pt says she Vaped for a Couple of Months or so when younger. TECHNIQUE: 2 radiographic view(s) of the chest. COMPARISON: None FINDINGS: LUNGS: Dense consolidation of the left lower lobe favored to represent pneumonia. Follow-up in 8-10 weeks is recommended to ensure resolution. The lungs are otherwise clear. Pulmonary vascular is within normal limits. No pneumothorax. HEART/MEDIASTINUM: Cardiac silhouette normal in size. Mediastinal and hilar contours appear normal. LINES/TUBES: None. BONES: No acute osseous abnormality. IMPRESSION: Left lower lobe pneumonia. Follow-up in 8-10 weeks is recommended to ensure resolution. THIS IS AN ELECTRONICALLY VERIFIED FINAL REPORT 08/07/2024 8:15 PM - Electronically signed by Logan IRAHETA: MYRTLE Report ID: [id number] Reading Location: [id number] Procedure Note Logan Giraldo MD - 08/07/2024 EXAM DESCRIPTION: XR CHEST PA LATERAL 2 VIEWS REASON FOR STUDY: possible infection C/o fevers, chills, headache, fatigue, cough and slight SOB x 8 Days.Pt was seen at today where she had a negative flu/covid. Pt reports shewas given a breathing tx and tylenol at urgent care because her Sp02 rfd62-72%. Pt says she Vaped for a Couple of Months or so when younger. TECHNIQUE: 2 radiographic view(s) of the chest. COMPARISON: None FINDINGS: LUNGS: Dense consolidation of the left lower lobe favored to represent pneumonia. Follow-up in 8-10 weeks is recommended to ensure resolution.The lungs are otherwise clear. Pulmonary vascular is within normal limits.No pneumothorax. HEART/MEDIASTINUM: Cardiac silhouette normal in size. Mediastinal andhilar contours appear normal. LINES/TUBES: None. BONES: No acute osseous abnormality. IMPRESSION: Left lower lobe pneumonia. Follow-up in 8-10 weeks is recommended toensure resolution. THIS IS AN ELECTRONICALLY VERIFIED FINAL REPORT 08/07/2024 8:15 PM - Electronically signed by Logan IRAHETA: MYRTLE Report ID: [id number] Reading Location: [id number] Magaly Chisholm MD IMG XR PROCEDURES Final R esult * Blood culture Blood Antecubital, right (08/07/2024 6:05 PM BUSINESS OBJECTS CONSULTANT) Report Final Report: No growth Comment:Testing performed by : [facility], [address] [place]., [address] Blood (Antecubital, right) 08/07/2024 6:05 PM BUSINESS OBJECTS CONSULTANT 08/07/2024 10:34 PM BUSINESS OBJECTS CONSULTANT Narrative [facility] ([place]) - 08/12/2024 7:00 AM BUSINESS OBJECTS CONSULTANT From a different site than #1. Draw Blood cultures before administration of Antibiotics Collection->Peripheral 1. Blood cultures are incubated for 4 days on a continuously monitored blood culture system. The first report of a negative culture is issued within 24 hours of receipt of the specimen in the laboratory. 2. Positive culture results are reported as soon as they are detected. 3. The most important factor for detection of microbes in the setting of bloodstream infection is the volume of blood submitted for culture. Failure to collect an optimal blood volume can result in false negative blood cultures. 4. For pediatric patients, the recommended blood volume to collect follows a weight based strategy. See the electronic test catalog for collection instructions. 5. For positive blood cultures, a rapid molecular test may be performed for organism identification using the zarina ePlex blood culture identification panel for gram positive (BCID-GP) and gram negative (BCID-GN) organisms. This nucleic acid amplification test detects microbial DNA in positive blood culture broth. This assay has been cleared by the [place] Food and Drug Administration and its performance characteristics have been verified by the [facility]. For questions about this culture, contact the Microbiology Laboratory at [phone]. Interpretive data was last revised on 24. Magaly Chisholm MD LAB MICROBIOLOGY - GENERA L ORDERABLES Final Result [facility] ([place]) 1 [facility] Department [place] [address] * Sepsis Lactate w/ Reflex (08/07/2024 6:04 PM BUSINESS OBJECTS CONSULTANT) Sepsis Lactate 1.2 0.7 - 2.0 mmol/L Blood 08/07/2024 6:04 PM BUSINESS OBJECTS CONSULTANT 08/07/2024 6:11 PM BUSINESS OBJECTS CONSULTANT Magaly Chisholm MD LAB BLOOD ORDERABLES So l Result Performing Organization Address City/[facility]/ZIP Co de Phone Number [facility] ([place]) 1 [facility] [place] [address] * eGFR (08/07/2024 6:04 PM BUSINESS OBJECTS CONSULTANT) [facility] eGFR >90 >=60 mL/min/1. 73 m2 Comment: Interpretive Data Reference Interval Normal >/= 90 mL/min/1.73m2 Mildly decreased* 60 - 89 mL/min/1.73m2 Mildly to moderately decreased 45 - 59 mL/min/1.73m2 Moderately to severely decreased 30 - 44 mL/min/1.73m2 Severely decreased 15 - 29 mL/min/1.73m2 Kidney Failure < 15 mL/min/1.73m2 *Relative to young adult level Estimated glomerular filtration rate is determined by the 2020 CKD-EPI equation recommended by the [employer] (A Unifying Approach to GFR Estimation: Recommendations of the NKF-ASK Task Force on Reassessing the Inclusion of Race in Diagnosing Kidney Disease, JASN 2020). The CKD-EPI equation should not be used for patients with unstable renal function and has not been validated in children and those over 70. Current interpretive data was last reviewed 2021. Blood 08/07/2024 6:04 PM BUSINESS OBJECTS CONSULTANT 08/07/2024 6:11 PM BUSINESS OBJECTS CONSULTANT Magaly Chisholm MD LAB BLOOD ORDERABLES So l Result [facility] (OG) 1 [facility] [place] [address] * (ABNORMAL) Differential, auto (08/07/2024 6:04 PM BUSINESS OBJECTS CONSULTANT) Pathologist [facility] Neutrophil abs 7.3(H) 1.5 - 6.5 K/cumm Imm gran abs 0.1 0.0 - 0.1 K/cumm [facility] (OG) Lymphocyte abs 1.3 0.8 - 3.3 K/cumm [facility] (OG) Monocyte abs 0.6 0.2 - 0.8 K/cumm [facility] (OG) Eosinophil abs 0.3 0.0 - 0.5 K/cumm [facility] (OG) Basophil abs 0.0 0.0 - 0.1 K/cumm [facility] (OG) Neutrophil pct 77.0 % [facility] (OG) Comment: Interpretive Data Percent cell count reference ranges are not reported, since discordance with absolute values may lead to misinterpretation of CBC data. Current Interpretive Data was last revised on 2017. Imm gran pct 0.8 % [facility] (OG) Comment: Interpretive Data Percent cell count reference ranges are not reported, since discordance with absolute values may lead to misinterpretation of CBC data. Current Interpretive Data was last revised on 2017. Lymphocyte pct 13.3 % [facility] (OG) Comment: Interpretive Data Percent cell count reference ranges are not reported, since discordance with absolute values may lead to misinterpretation of CBC data. Current Interpretive Data was last revised on 2017. Monocyte pct 5.9 % [facility] (OG) Comment: Interpretive Data Percent cell count reference ranges are not reported, since discordance with absolute values may lead to misinterpretation of CBC data. Current Interpretive Data was last revised on 2017. Eosinophil pct 2.8 % [facility] (OG) Comment: Interpretive Data Percent cell count reference ranges are not reported, since discordance with absolute values may lead to misinterpretation of CBC data. Current Interpretive Data was last revised on 2017. Basophil pct 0.2 % [facility] (OG) Comment: Interpretive Data Percent cell count reference ranges are not reported, since discordance with absolute values may lead to misinterpretation of CBC data. Current Interpretive Data was last revised on 2017. Blood 08/07/2024 6:04 PM BUSINESS OBJECTS CONSULTANT 08/07/2024 6:11 PM BUSINESS OBJECTS CONSULTANT Magaly Chisholm MD LAB BLOOD ORDERABLES So l Result [facility] (OG) 1 [facility] [place] [address] * (ABNORMAL) CBC with auto differential (08/07/2024 6:04 PM BUSINESS OBJECTS CONSULTANT) Pathologist [facility] WBC 9.4 3.8 - 9.9 K/cumm Hgb 11.3(L) 11.9 - 15.5 g/dL [facility] (OG) Hct 33.3(L) 35.6 - 45.5 % [facility] (OG) Plt 325 150 - 400 K/cumm [facility] (OG) MPV 10.6 9.1 - 12.3 fL [facility] (OG) RBC 3.64(L) 3.90 - 5.20 M/cumm [facility] (OG) MCV 91.5 81.3 - 96.4 fL [facility] (OG) MCH 31.0 27.1 - 33.3 pg [facility] (OG) MCHC 33.9 32.3 - 35.7 g/dL [facility] (OG) RDW CV 12.8 11.1 - 14.9 % [facility] (OG) RDW SD 42.5 35.7 - 48.1 fL [facility] (OG) NRBC abs 0.00 0.00 - 0.01 K/cumm [facility] (OG) Blood 08/07/2024 6:04 PM BUSINESS OBJECTS CONSULTANT 08/07/2024 6:11 PM BUSINESS OBJECTS CONSULTANT Magaly Chisholm MD LAB BLOOD ORDERABLES So l Result [facility] (OG) 1 [facility] [place] [address] * (ABNORMAL) Comprehensive metabolic panel (08/07/2024 6:04 PM BUSINESS OBJECTS CONSULTANT) Pathologist [facility] Sodium 134(L) 135 - 145 mmol/L Potassium, pl 2.7(C) 3.3 - 4.9 mmol/L [facility] (OG) Comment:Critical Result call ed by [email or web address] at 2024-08-07 18:43:31. Result Read Back by Fabiana Leslie ED Chloride 93(L) 97 - 110 mmol/L [facility] (OG) CO2 26 22 - 32 mmol/L [facility] (OG) Anion gap 15 2 - 15 mmol/L [facility] (OG) BUN 4(L) 6 - 25 mg/dL [facility] (OG) Creatinine 0.70 0.60 - 1.10 mg/dL [facility] (OG) Glucose 114 70 - 199 mg/dL [facility] (OG) Comment: Interpretive Data Fasting glucose >/= 126 mg/dl is diagnostic for diabetes. Fasting is defined as no caloric intake for at least 8 hours. Fasting glucose between 100 mg/dl to 125 mg/dl is diagnostic of prediabetes. In a patient with classic symptoms of hyperglycemia or hyperglycemic crisis, a random glucose >/= 200 mg/dl is diagnostic for diabetes. In the absence of unequivocal hyperglycemia, results should be confirmed by repeat testing. The classification and Diagnosis of Diabetes Diabetes Care 2021; 46: S19-S40. Current interpretive data was last revised 2022. Calcium 9.0 8.5 - 10.3 mg/dL [facility] (OG) Bilirubin, total 0.4 0.1 - 1.2 mg/dL [facility] (OG) Protein, pl 7.7 6.5 - 8.5 g/dL [facility] (OG) Albumin 3.6 3.5 - 5.0 g/dL [facility] (OG) Alk phos 106 40 - 130 Units/L [facility] (OG) ALT 41 7 - 45 Units/L [facility] ([facility]) AST 47(H) 10 - 45 Units/L [facility] (OG) Blood 08/07/2024 6:04 PM BUSINESS OBJECTS CONSULTANT 08/07/2024 6:11 PM BUSINESS OBJECTS CONSULTANT us Magaly Chisholm MD LAB BLOOD ORDERABLES So tello Result [facility] (OG) 1 [facility] [place] [address] * POC Influenza A/B, COVID-19 antigen (08/07/2024 2:36 PM BUSINESS OBJECTS CONSULTANT) Influenza A Ag, POC Negative Negative [facility] Influenza B Ag, POC Negative [facility] P[facility] Presumptive Negative Presumptive Negative, Invalid [facility] Nasal 08/07/2024 2:36 PM BUSINESS OBJECTS CONSULTANT us Cristal Addison RN HEMODIALYSIS POINT OF CARE TEST ORDERABLES Fi nal Result [facility] [address] [place] [address], [facility] from Last 3 Months Insurance [facility] Advance Directives For more information, please contact: [phone] * Full Code (Latest Code Status on File) Date Activated Date Inactivated Comments 08/08/2024 12:44 PM 08/08/2024 7:19 PM Care Teams [employer] Plants Supervisor Relationship Specialty Start Date End Date Nadia Liu PA [address] [place] [address] PCP - General Chemical Economist 08/08/24
--- OUTSIDE RECORDS SUMMARY | 2024-09-22 15:58 | XMS_ITS | Encounter Summary ---
Author Organization [facility] Address [address] [place] [address] Phone Care Team Providers Care Drywall Hanger Helper Name Role Phone Rosalia Louie MD Primary Care Provider [phone] Nicko Hameed MD Unavailable Provider, None Primary Care Provider UnavailNadia Jennings Primary Care Provider + Reason for Visit * Reason Comments Medication Refill Encounter Details Date Type Department Care Team (Late st Contact Info) Description 07/28/2021 Refill [facility] - Family Medicine [facility] [address] [place] [address] Rosalia Louie MD [address] [place] [address] Medication Refill Social History Tobacco Use Types Packs/Day Years Used Date Smoking Tobacco: Never Smokeless Tobacco: Never Alcohol Use Standard Drinks/Week Comments Not Currently 0 (1 standard drink = 0.6 oz pur e alcohol) weekend drinker PHQ-2 Answer Date Recorded Total Score - Questions 1-9 0 08/28 Education Answer Date Recorded What is the highest level of school you have completed or the highest degree you have received? Some college, no degree 09/07/2020 Sexually Active Control Partners Comments Not Currently Male Comments No Sex and Gender Information Value Date Recorded Sex Assigned at Not on file Legal Sex Female 2:45 PM ELEVATOR CONDUCTOR Gender Identity Not on file Sexual Orientation Not on file COVID-19 Exposure Response Date Recorded In the last month, have you been in contact with someone who was confirmed or suspected to have Coronavirus / COVID-19? No / Unsure 07/21/2021 3:30 PM ELEVATOR CONDUCTOR documented as of this encounter Miscellaneous Notes * Telephone Encounter - Nicole Denise CMA - 08/31/2021 10:28 AM ELEVATOR CONDUCTOR Patient has an appointment on 09/05/[address] Lindsey ATOR CONDUCTOR * Telephone Encounter - Anali Hernandez RN - 07/30/2021 2:46 PM CST See MD note below ATOR CONDUCTOR * Telephone Encounter - Rosalia Louie MD - 07/30/2021 2:39 PM ELEVATOR CONDUCTOR Pap needed ATOR CONDUCTOR * Telephone Encounter - Anali Hernandez RN - 07/30/2021 9:38 AM CST Medication failed the protocol, provider to review and approve the medication order if appropriate. Requested Prescriptions Pending Prescriptions Disp Refills Taytulla 1-20 MG-MCG(24) Capsule [Pharmacy Med Name: TAYTULLA 1 MG-20 MCG CAPSULE] 28 Capsule 11 Sig: TAKE 1 CAP DAILY DIRECTED - INDICATIONS: EXCESSIVE AMOUNT OF MENSTRUAL VOLUME Not Delegated - Oral Contraceptives Protocol Failed - 07/28/2021 9:13 AM Failed - This refill cannot be delegated Passed - No positive test in the past 12 months or most recent test was negative Passed - Visit with relevant provider in past 12 months or upcoming 90 days Recent Visits Date Type Provider Dept 07/05/21 Telemedicine Tim Stewart MD [facility] 03/28/21 Office Visit Rosalia Louie MD [facility] 09/07/20 Office Visit Rosalia Louie MD [facility] Showing recent visits within past 365 days and meeting all other requirements Future Appointments Date Type Provider Dept 08/02/21 Appointment Rosalia Louie MD [facility] Showing future appointments within next 90 days and meeting all other requirements Passed - No active on record Passed - Up to date with pap smear Health Maintenance ATOR CONDUCTOR documented in this encounter Plan of Treatment Upcoming Encounters Date Type Department Care Team (Late st Contact Info) Description 11/04/2024 10:45 AM CDT Office Visit [facility] - Family Medicine - [facility] [address] [facility] [place] [address] Nadia Liu PAC [address] [place] [address] documented as of this encounter Visit Diagnoses Not on filedocumented in this encounter Additional Health Concerns Infection Onset Date Last Indicated Resolved Time COVID - 19 12/13/2021 12/13/2021 12/23/2021 12:1 9 AM CDT COVID - 19 01/08/2022 01/08/2022 01/18/2022 12:1 6 AM CDT COVID - 19 08/28/2022 08/28/2022 09/07/2022 12:1 6 AM ELEVATOR CONDUCTOR COVID - 19 04/30/2024 04/30/2024 04/30/2024 3:11 PM CDT Assessment Noted Time PHQ-9 Depression Total Score: 0 09/08/19 9:00 AM ELEVATOR CONDUCTOR documented as of this encounter Care Teams Drywall Hanger Helper Relationship Specialty Start Date End Date Rosalia Louie MD [address] [place] [address] PCP - General Family Medicine 05/15/18 12/15/23 Provider, None [place] PCP - General 04/30/24 08/11/24 Nadia Liu PAC [address] [place] [address] PCP - General Physician Auger Supervisor 08/12/24 Nicko Hameed MD [address] [address] Consulting Physician Colon and Rectal Surgery 08/07/21 documented as of this encounter
--- OUTSIDE RECORDS SUMMARY | 2024-09-22 15:58 | XMS_ITS | Referral Summary ---
Author Organization [address] Address [address] [place] [address] Care Team Providers Care Air Defense Artillery Officer Name Role Phone Nadia Liu Primary Care Provider Encounters Date Type Department Care Team Description 08/07/2024 5:07 PM SOFTWARE DEVELOPMENT ENGINEER - 08/08/2024 3:19 PM SOFTWARE DEVELOPMENT ENGINEER Emergency [facility] Acute Medicine [address] [place] [address] Magaly Chisholm MD Wala, MD Jean Marie Vance, MD Ralf Elizalde John Albert Jr., MD Pneumonia of left lower lobe due to infectious organism (Primary Dx); Hypokalemia; Wheezing; Acute hypoxemic respiratory failure (HCC); Fever, unspecified fever cause; Shortness of breath Discharge Disposition: Discharge to home or self care 08/07/2024 2:15 PM SOFTWARE DEVELOPMENT ENGINEER Office Visit [facility] [place] [address] [place] [address] Cristal Addison NP Shortness of breath (Primary Dx); Fever, unspecified fever cause; Hypoxemia 07/27/2024 Telephone [facility] Accountable Care Organization [address] [place] [address] Diandra Morocho MA Unsuccessful Phone Call 1 (AWV SCHEDULING) from Last 3 Months Allergies Active Allergy Reactions Criticality Noted Date Comments Lamotrigine Hives,Rash High 05/15/2018 Medications No known medications Active Problems Problem Noted Date Diagnosed Date Hypokalemia 08/08/2024 Pneumonia of left lower lobe due to infectious o rganism 08/07/2024 Social History Tobacco Use Types Packs/Day Years [...] on file Legal Sex Female 12:42 PM SOFTWARE DEVELOPMENT ENGINEER Gender Identity Not on file Sexual Orientation Not on file Last Filed Vital Signs Vital Sign Reading Time Taken Comments Blood Pressure 114/74 08/08/2024 7:10 AM SOFTWARE DEVELOPMENT ENGINEER Pulse 84 08/08/2024 7:10 AM SOFTWARE DEVELOPMENT ENGINEER Temperature 36.6 C (97.9 F) 08/08/2024 7:10 AM SOFTWARE DEVELOPMENT ENGINEER Respiratory Rate 18 08/08/2024 7:10 AM SOFTWARE DEVELOPMENT ENGINEER Oxygen Saturation 92% 08/08/2024 7:10 AM SOFTWARE DEVELOPMENT ENGINEER Inhaled Oxygen Concentration - - Weight 98.9 kg (218 lb) 08/08/2024 4:39 AM SOFTWARE DEVELOPMENT ENGINEER Height 165.1 cm (5' 5 ) 08/08/2024 4:39 AM SOFTWARE DEVELOPMENT ENGINEER Body Mass Index 36.28 08/08/2024 4:39 AM SOFTWARE DEVELOPMENT ENGINEER Plan of Treatment Not on file Procedures Procedure Name Priority Date/Time Associated Diagnosis Comments EGFR STAT 08/08/2024 9:14 AM SOFTWARE DEVELOPMENT ENGINEER BASIC METABOLIC PANEL STAT 08/08/2024 9:14 AM SOFTWARE DEVELOPMENT ENGINEER INFLUENZA A/B, RSV, AND COVID-19 PCR STAT 08/08/2024 2:47 AM SOFTWARE DEVELOPMENT ENGINEER URINALYSIS AND REFLEX TO MICROSCOPIC AND CULTURE STAT 08/07/2024 8:47 PM SOFTWARE DEVELOPMENT [address] CT CHEST PE W CONTRAST ED 8:32 PM SOFTWARE DEVELOPMENT ENGINEER BLOOD CULTURE STAT 08/07/2024 7:31 PM SOFTWARE DEVELOPMENT ENGINEER XR CHEST PA LATERAL 2 VIEWS ED 08/07/2024 7:02 PM SOFTWARE DEVELOPMENT ENGINEER BLOOD CULTURE STAT 08/07/2024 6:05 PM SOFTWARE DEVELOPMENT ENGINEER EGFR STAT 08/07/2024 6:04 PM SOFTWARE DEVELOPMENT ENGINEER DIFFERENTIAL AUTO STAT 08/07/2024 6:0 4 PM SOFTWARE DEVELOPMENT ENGINEER SEPSIS LACTATE WITH REFLEX Routine 08/07/2024 6:04 PM SOFTWARE DEVELOPMENT ENGINEER COMPREHENSIVE METABOLIC PANEL STAT 08/07/2024 6:04 PM SOFTWARE DEVELOPMENT ENGINEER CBC WITH AUTO DIFFERENTIAL STAT 08/07/2024 6:04 PM SOFTWARE DEVELOPMENT ENGINEER POC INFLUENZA A/B, COVID-19 ANTIGEN Routine 08/07/2024 2:36 PM SOFTWARE DEVELOPMENT ENGINEER Shortness of breath from Last 3 Months Results * eGFR (08/08/2024 9:14 AM SOFTWARE DEVELOPMENT ENGINEER) eGFR >90 >=60 mL/min/1. 73 m2 Comment: [...] last reviewed 2021. Blood 08/08/2024 9:14 AM SOFTWARE DEVELOPMENT ENGINEER 08/08/2024 9:29 AM SOFTWARE DEVELOPMENT ENGINEER us Grupo Arambula Jr., MD LAB BLOOD ORDERABLE S Final Result [facility] ([facility]) 1 [facility] Department [place] [address] * (ABNORMAL) Basic metabolic panel (08/08/2024 9:14 AM SOFTWARE DEVELOPMENT ENGINEER) Sodium 138 135 - 145 mmol/L Potassium, pl 3.2(L) 3.3 - 4.9 mmol/L [facility] ([facility]) Chloride 100 97 - 110 mmol/L [facility] ([facility]) CO2 25 22 - 32 mmol/L [facility] ([facility]) Anion gap 13 2 - 15 mmol/L [facility] ([facility]) BUN 5(L) 6 - 25 mg/dL [facility] ([facility]) Creatinine 0.56(L) 0.60 - 1.10 mg/dL [facility] ([facility]) Glucose 158 70 - 199 mg/dL [facility] ([facility]) [...] classification and Diagnosis of Diabetes Diabetes Care 202; 46: S19-S40. Current interpretive data was last revised 2022. Calcium 9.5 8.5 - 10.3 mg/dL [facility] ([facility]) Blood 08/08/2024 9:14 AM SOFTWARE DEVELOPMENT ENGINEER 08/08/2024 9:29 AM SOFTWARE DEVELOPMENT ENGINEER us Grupo Arambula Jr., MD LAB BLOOD ORDERABLE S Final Result [facility] ([facility]) 1 [facility] [place] [address] * Influenza A/B, RSV, and COVID-19 PCR Nasopharyngeal (08/08/2024 2:47 AM SOFTWARE DEVELOPMENT ENGINEER) COVID-19 RNA Negative Negative Influenza A RNA Negative Negative [facility] (OG) Influenza B RNA Negative Negative [facility] (OG) RSV RNA Negative Negative [facility] Comment: Interpretive data: Testing performed by [facility]. This test is performed using the [employer] Xpert Xpress CoV-2/Flu/RSV plus assay. This is a multiplex, real- time reverse transcriptase PCR assay intended for the qualitative detection of nucleic acid from SARS-CoV-2, influenza A, influenza B, and respiratory syncytial virus. This assay has been cleared by the [place] Food and Drug administration. The performance characteristics have been verified by the [facility]. Results must be considered in the clinical context, and a negative result does not rule out infection. Interpretive Data last revised 2023 Nasopharyngeal 08/08/2024 2: 47 AM SOFTWARE DEVELOPMENT ENGINEER 08/08/2024 2:56 AM SOFTWARE DEVELOPMENT ENGINEER Narrative [facility] - 08/08/2024 3:51 AM SOFTWARE DEVELOPMENT ENGINEER Is the Patient experiencing symptoms consistent with COVID?->Yes us Roger Aj MD LAB MICROBIOLOGY - [facility] ORDERABLES Final Result [facility]) 1 [facility] Department [place] [address] * (ABNORMAL) Urinalysis reflex to microscopic and culture Urine (08/07/2024 8:47 PM SOFTWARE DEVELOPMENT ENGINEER) Color, ur Straw Yellow Clarity, ur Clear Clear [facility] Specific gravity, ur 1.003 1.003 - 1.030 [facility] pH, urine 6.5 [facility] Comment: Interpretive Data U rine pH is affected by diet, medications, systemic acid-base disturbances, and renal tubular function. pH may affect urinary stone formation. For example, urine pH below 6.0 may help reduce the tendency for calcium phosphate stones and pH greater than 6.0 may reduce the tendency for uric acid stone formation. Source: [facility] Current Interpretive Data was last revised on [...] [facility] ([facility]) Urine 08/07/2024 8:47 PM SOFTWARE DEVELOPMENT ENGINEER 08/07/2024 9:01 PM SOFTWARE DEVELOPMENT ENGINEER Narrative [facility] ([facility]) - 08/07/2024 9:25 PM SOFTWARE DEVELOPMENT ENGINEER If patient unable to urinate, straight cath us Magaly Chisholm MD LAB MICROBIOLOGY - GENERA L ORDERABLES Final Result [facility] ([place]) 1 [facility] Department [place] [address] * CT Chest PE (CTA) W Contrast (08/07/2024 8:32 PM SOFTWARE DEVELOPMENT ENGINEER) Anatomical Region Laterality Modality Body N/A Computed Tomogra phy 08/07/2024 10:0 6 PM SOFTWARE DEVELOPMENT ENGINEER Narrative 08/07/2024 10:12 PM SOFTWARE DEVELOPMENT ENGINEER EXAM DESCRIPTION: CT CHEST PE (CTA) W [...] Emmanuel Villa M.D. KT: MARCO Report ID: [id number] Reading Location: [id number] Procedure Note Emmanuel Villa MD - 08/07/2024 [...] Electronically signed by Emmanuel Villa M.D. KT: KT Report ID: [id number] Reading Location: [place] [address] Magaly Chisholm MD IMG [address] PROCEDURES Final R esult * Blood culture Blood Peripheral (08/07/2024 7:31 PM SOFTWARE DEVELOPMENT ENGINEER) Report Final Report: No growth Comment:Testing performed by : [facility], [address] [facility] [place]., [address] Blood (Peripheral) 08/07/2024 7:31 PM SOFTWARE DEVELOPMENT ENGINEER 08/07/2024 10:34 PM SOFTWARE DEVELOPMENT ENGINEER Narrative [facility] ([place]) - 08/12/2024 7:00 AM SOFTWARE DEVELOPMENT ENGINEER Draw Blood cultures before administration of Antibiotics [...] performance characteristics have been verified by the [facility] Microbiology Laboratory. For questions about this culture, contact the Microbiology Laboratory at [phone]. Interpretive data was last revised on 24. us Magaly Chisholm MD LAB MICROBIOLOGY - GENERA L ORDERABLES Final Result [facility]) 1 [facility] Department [place] [address] * XR Chest PA Lateral 2 Views (08/07/2024 7:02 PM SOFTWARE DEVELOPMENT ENGINEER) Anatomical Region Laterality Modality Body, Chest N/A Computed Radiogr aphy 08/07/2024 8:10 PM SOFTWARE DEVELOPMENT ENGINEER Narrative 08/07/2024 8:15 PM SOFTWARE DEVELOPMENT ENGINEER EXAM DESCRIPTION: XR CHEST PA LATERAL 2 [...] 8:15 PM - Electronically signed by Logan Giraldo M.D. JA: MYRTLE Report ID: [id number] Reading Location: [id number] Procedure Note Logan Giraldo MD - 08/07/2024 EXAM DESCRIPTION: XR CHEST PA LATERAL 2 VIEWS REASON FOR STUDY: possible infection C/o fevers, chills, headache, fatigue, cough and slight SOB x 8 Days.Pt was seen at today where she had a negative flu/covid. Pt reports shewas given a breathing tx and tylenol at urgent care because her Sp02 [id number]%. Pt says she Vaped for a Couple [...] 8:15 PM - Electronically signed by Logan Giraldo M.D. JA: MYRTLE Report ID: [id number] Reading Location: [place] [address] Magaly Chisholm MD IMG XR PROCEDURES Final R esult * Blood culture Blood Antecubital, right (08/07/2024 6:05 PM SOFTWARE DEVELOPMENT ENGINEER) Report Final Report: No growth Comment:Testing performed by : [facility], [address] [facility] [place]., [address] Blood (Antecubital, right) 08/07/2024 6:05 PM SOFTWARE DEVELOPMENT ENGINEER 08/07/2024 10:34 PM SOFTWARE DEVELOPMENT ENGINEER Narrative [facility] ([facility]) - 08/12/2024 7:00 AM SOFTWARE DEVELOPMENT ENGINEER From a different site than #1. Draw [...] performance characteristics have been verified by the [facility] Microbiology Laboratory. For questions about this culture, contact the Microbiology Laboratory at [phone]. Interpretive data was last revised on 24. Magaly Chisholm MD LAB MICROBIOLOGY - GENERA L ORDERABLES Final Result [facility] ([place]) 1 [facility] [place] [address] * Sepsis Lactate w/ Reflex (08/07/2024 6:04 PM SOFTWARE DEVELOPMENT ENGINEER) [facility] Sepsis Lactate 1.2 0.7 - 2.0 mmol/L Blood 08/07/2024 6:04 PM SOFTWARE DEVELOPMENT ENGINEER 08/07/2024 6:11 PM SOFTWARE DEVELOPMENT ENGINEER Magaly Chisholm MD LAB BLOOD ORDERABLES So l Result [facility] ([facility]) 1 [facility] [place] [place] [address] * eGFR (08/07/2024 6:04 PM SOFTWARE DEVELOPMENT ENGINEER) [facility] eGFR >90 >=60 mL/min/1. 73 m2 Comment: [...] last reviewed 2021. Blood 08/07/2024 6:04 PM SOFTWARE DEVELOPMENT ENGINEER 08/07/2024 6:11 PM SOFTWARE DEVELOPMENT ENGINEER us Magaly Chisholm MD LAB BLOOD ORDERABLES So l Result [facility] ([place]) [address] [place] [address] Department [place] [address] * (ABNORMAL) Differential, auto (08/07/2024 6:04 PM SOFTWARE DEVELOPMENT ENGINEER) Neutrophil abs 7.3(H) 1.5 - 6.5 K/cumm [...] Imm gran pct 0.8 % [facility] ([place]) Comment: Interpretive Data Percent cell count reference [...] revised on 2017. Blood 08/07/2024 6:04 PM SOFTWARE DEVELOPMENT ENGINEER 08/07/2024 6:11 PM SOFTWARE DEVELOPMENT ENGINEER Magaly Chisholm MD LAB BLOOD ORDERABLES So tello Result [facility] 1 [facility] Department [place] [address] * (ABNORMAL) CBC with auto differential (08/07/2024 6:04 PM SOFTWARE DEVELOPMENT ENGINEER) WBC 9.4 3.8 - 9.9 K/cumm Hgb 11.3(L) 11.9 - 15.5 g/dL [facility] ([facility]) Hct 33.3(L) 35.6 - 45.5 % [facility] ([facility]) Plt 325 150 - 400 K/cumm [facility] ([facility]) MPV 10.6 9.1 - 12.3 fL [facility] ([facility]) RBC 3.64(L) 3.90 - 5.20 M/cumm [facility] MCV 91.5 81.3 - 96.4 fL [facility] MCH 31.0 27.1 - 33.3 pg [facility] ([facility]) MCHC 33.9 32.3 - 35.7 g/dL [facility] ([facility]) RDW CV 12.8 11.1 - 14.9 % [facility] RDW SD 42.5 35.7 - 48.1 fL [facility] ([facility]) NRBC abs 0.00 0.00 - 0.01 K/cumm [facility] Blood 08/07/2024 6:04 PM SOFTWARE DEVELOPMENT ENGINEER 08/07/2024 6:11 PM SOFTWARE DEVELOPMENT ENGINEER us Magaly Chisholm MD LAB BLOOD ORDERABLES So l Result [facility] ([place]) 1 [facility] Department [place] [address] * (ABNORMAL) Comprehensive metabolic panel (08/07/2024 6:04 PM SOFTWARE DEVELOPMENT ENGINEER) Sodium 134(L) 135 - 145 mmol/L Potassium, pl 2.7(C) 3.3 - 4.9 mmol/L [facility] ([facility] Comment:Critical Result call ed by [id number] at 2024-08-07 18:43:31. Result Read Back by Fabiana Leslie ED Chloride 93(L) 97 - 110 mmol/L [facility] ([facility]) CO2 26 22 - 32 mmol/L [facility] ([facility]) Anion gap 15 2 - 15 mmol/L [facility] ([facility]) BUN 4(L) 6 - 25 mg/dL [facility] Creatinine 0.70 0.60 - 1.10 mg/dL [facility] ([facility]) Glucose 114 70 - 199 mg/dL [facility] Comment: Interpretive Data Fasting [...] [facility] ([facility]) Blood 08/07/2024 6:04 PM SOFTWARE DEVELOPMENT ENGINEER 08/07/2024 6:11 PM SOFTWARE DEVELOPMENT ENGINEER Magaly Chisholm MD LAB BLOOD ORDERABLES So l Result [facility] 1 [facility] [place] [address] * POC Influenza A/B, COVID-19 antigen (08/07/2024 2:36 PM SOFTWARE DEVELOPMENT ENGINEER) Influenza A Ag, POC Negative Negative [facility] Influenza B Ag, POC Negative Negative [facility] COVID-19 Ag POC Presumptive Negative Presumptive Negative, Invalid [facility] Nasal 08/07/2024 2:36 PM SOFTWARE DEVELOPMENT ENGINEER Cristal Addison NP POINT OF CARE TEST ORDERABLES Fi nal Result Performing Organization Address City/[facility]/ZIP Co de Phone Number [facility] [address] [place] [address], [facility] from Last 3 Months Insurance [facility] Advance Directives For more information, please contact: [phone] * Full Code (Latest Code Status on File) Date Activated Date Inactivated Comments 08/08/2024 12:44 PM 08/08/2024 7:19 PM Care Teams Air Defense Artillery Officer Relationship Specialty Start Date End Date Nadia Liu PA [address] [place] [address] PCP - General Lead Sprinkler 08/08/24
--- OUTSIDE RECORDS SUMMARY | 2024-09-22 15:58 | XMS_ITS | Encounter Summary ---
Author Organization [facility] HealthCare Address [address] [place] [address] Phone Care Team Providers Care Dough Maker Name Role Phone Nicko Hameed MD Unavailable Nadia Liu Primary Care Provider + Encounter Details Date Type Department Care Team (Late st Contact Info) Description 08/27/2024 Results Follow-Up [facility] Medical Group - Family Medicine [facility] [address] [place] [address] Nadia Liu PAC [address] [place] [address] Social History Tobacco Use Types Packs/Day Years Used Date Smoking Tobacco: Never Smokeless Tobacco: Never Alcohol Use Standard Drinks/Week Comments Yes 0 (1 standard drink = 0.6 oz pur e alcohol) weekend drinker [facility] Utilities Answer Date Recorded In the past 12 months has [employer], gas, oil, or water [employer] threatened to shut off services in your [...] week 08/10/2024 How often do you attend [facility] or [facility] services? Never 08/10/2024 Do you belong to any clubs o r organizations such as voodoo groups, unions, fraternal or athletic groups, or [...] Total Score - Questions 1-9 0 07/31 [facility] - Occupational Stress Questionnaire Answer Date [...] any time in the past 12 m ont, were you homeless or living in a chcf (including now)? No 08/10/2024 Education Answer Date Recorded What is the highest level of school you have completed or the highest degree you have received? Associate degree: occupational, technical, or vocational program 08/27/2022 Sexually Active Control Partners Comments Not Currently Male Comments No Sex and Gender Information Value Date Recorded Sex Assigned at Not on file Legal Sex Female 2:45 PM ORAL AND MAXILLOFACIAL SURGEON Gender Identity Not on file Sexual Orientation Not on file documented as of this encounter Miscellaneous Notes * Telephone Encounter - Michelle Dockery RN - 08/27/2024 4:02 PM CST Called and spoke with patient and let her know, she stated that she understood. No bleeding or pain. AND MAXILLOFACIAL SURGEON * Telephone Encounter - Michelle Dockery RN - 08/27/2024 4:00 PM CST ----- Message from Gloria Liu sent at 08/27/2024 2:34 PM ORAL AND MAXILLOFACIAL SURGEON ----- Lab is positive but this is a very low number, any abdominal pain or bleeding, consider having thisrechecked in few days to make sure increasing AND MAXILLOFACIAL SURGEON documented in this encounter Plan of Treatment Upcoming Encounters Date Type Department Care Team (Late st Contact Info) Description 11/04/2024 10:45 AM CDT Office Visit [facility] - [facility] - [place] [address] [place] [address] Nadia Liu, PAC [address] [place] [address] documented as of this encounter Visit Diagnoses Not on filedocumented in this encounter Additional Health Concerns Assessment Noted Time PHQ-9 Depression Total Score: 0 08/12/19 25 10:02 AM ORAL AND MAXILLOFACIAL SURGEON documented as of this encounter Care Teams Dough Maker Relationship Specialty Start Date End Date Nadia Liu PAC [address] [place] [address] PCP - General Physician Recharger 08/12/24 Nicko Hameed MD [address] [address] Consulting Physician Colon and Rectal Surgery 08/07/21 documented as of this encounter
--- OUTSIDE RECORDS SUMMARY | 2024-09-22 15:58 | XMS_ITS | Encounter Summary ---
Author Organization [facility] Address [address] [place] [address] Phone Care Team Providers Care Manager Supplier Name Role Phone Rosalia Louie MD Primary Care Provider [phone] Nicko Hameed MD Unavailable Provider, None Primary Care Provider UnavailNaida Jennings Primary Care Provider + Reason for Visit * Reason Comments Medication Refill Encounter Details Date Type Department Care Team (Late st Contact Info) Description 12/31/2022 Refill [facility] - Family Medicine [facility] [address] [place] [address] Rosalia Louie MD [address] [place] [address] Medication Refill Social History Tobacco Use Types Packs/Day Years Used Date Smoking Tobacco: Never Smokeless Tobacco: Never Alcohol Use Standard Drinks/Week Comments Yes 0 (1 standard drink = 0.6 oz pur e alcohol) weekend drinker PHQ-2 Answer Date Recorded Total Score - Questions 1-9 0 10/30 Education Answer Date Recorded What is the highest level of school you have completed or the highest degree you have received? 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 Requested Prescriptions Pending Prescriptions Disp Refills Taytulla 1-20 MG-MCG(24) Capsule [Pharmacy Med Name: TAYTULLA 1 MG-20 MCG CAPSULE] 28 Capsule 11 Sig: TAKE 1 CAP DAILY DIRECTED - INDICATIONS: EXCESSIVE AMOUNT OF MENSTRUAL VOLUME Not Delegated - Oral Contraceptives Protocol Failed - 12/31/2022 7:31 AM Failed - This refill cannot be delegated Failed - Up to date with pap smear Health Maintenance Passed - No positive test in the past 12 months or most recent test was negative Passed - Visit with relevant provider in past 12 months or upcoming 90 days Recent Visits Date Type Provider Dept 08/28/22 Office Visit Rosalia Louie MD [facility] [place] Showing recent visits within past 365 days and meeting all other requirements Future Appointments No visits were found meeting these conditions. Showing future appointments within next 90 days and meeting all other requirements Passed - No active on record documented in this encounter Plan of Treatment Upcoming Encounters Date Type Department Care Team (Late st Contact Info) Description 11/04/2024 10:45 AM CDT Office Visit [facility] - [facility] Medicine - [place] [address] [place] [address] Nadia Liu PAC [address] [place] [address] documented as of this encounter Visit Diagnoses Not on filedocumented in this encounter Additional Health Concerns Infection Onset Date Last Indicated Resolved Time COVID - 19 04/30/2024 04/30/2024 04/30/2024 3:11 PM CDT Assessment Noted Time PHQ-9 Depression Total Score: 0 09/08/19 21 9:00 AM BLEACHING MACHINE OPERATOR documented as of this encounter Care Teams Manager Supplier Relationship Specialty Start Date End Date Rosalia Louie MD [address] [place] [address] PCP - General Family Medicine 05/15/18 12/15/23 Provider, None [place] PCP - General 04/30/24 08/11/24 Nadia Liu PAC [address] [place] [address] PCP - General Physician Oil Well Perforator Operator 08/12/24 Nicko Hameed MD [address] [address] Consulting Physician Colon and Rectal Surgery 08/07/21 documented as of this encounter
--- OUTSIDE RECORDS SUMMARY | 2024-09-22 15:58 | XMS_ITS | Encounter Summary ---
Author Organization [facility] Address [address] [place] [address] Care Team Providers Care Investigation Lieutenant Name Role Phone Rabia Roblero MD Primary Care Provider Encounter Details Date Type Department Care Team (Late st Contact Info) Description 06/11/2005 Outpatient Historical [facility] [place] [id number] Kyle Rojas, PhD NO ADDRESS ON FILE Social History Tobacco Use Types Packs/Day Years Used Date Smoking Tobacco: Never Assessed Comments Unknown Sex and Gender Information Value Date Recorded Sex Assigned at Not on file Legal Sex Female 3:01 AM COOKER MECHANIC Gender Identity Not on file Sexual Orientation Not on file documented as of this encounter Plan of Treatment Not on file documented as of this encounter Visit Diagnoses Not on filedocumented in this encounter Care Teams Investigation Lieutenant Relationship Specialty Start Date End Date Rabia Roblero MD PCP - General Internal Medicine 04/07/19 documented as of this encounter
--- OUTSIDE RECORDS SUMMARY | 2024-09-22 15:58 | XMS_ITS | Encounter Summary ---
Author Organization [facility] Address [address] [place] [address] Care Team Providers Care Plugger Worker Name Role Phone Rabia Roblero MD Primary Care Provider Encounter Details Date Type Department Care Team (Late st Contact Info) Description 06/10/2005 Outpatient Historical [facility] Child Development [place] [address] Kyle Rojas, PhD NO ADDRESS ON FILE Social History Tobacco Use Types Packs/Day Years Used Date Smoking Tobacco: Never Assessed Comments Unknown Sex and Gender Information Value Date Recorded Sex Assigned at Not on file Legal Sex Female 3:01 AM CONTROL PANEL BUILDER Gender Identity Not on file Sexual Orientation Not on file documented as of this encounter Plan of Treatment Not on file documented as of this encounter Visit Diagnoses Not on filedocumented in this encounter Care Teams Plugger Worker Relationship Specialty Start Date End Date Rabia Roblero MD PCP - General Internal Medicine 04/07/19 documented as of this encounter
== END 2024-09-22 14:39 | disposition home or self-care (01) ==
PROVIDERS: PCP Physician Assistant; Visit Provider Student in an Organized Health Care Education/Training Program
DX: Z34.90 Encounter for supervision of normal pregnancy, unspecified, unspecified trimester (principal)
CPT/HCPCS: 76801; 76817

== ENCOUNTER 2025-05-11 10:10 | Inpatient (IN) | payer OTHER, SELFPAY ==
[2025-05-11] VITALS (102 sets, daily range): BP systolic 92–133; BP diastolic 51–97; PULSE 58–113; RESP 18–19; TEMP 36.5–36.9; O2SAT 96–100; BMI 42.9
[2025-05-11 11:09] LABS: Hematocrit 34.4 % (37.0-47.0); Hemoglobin 11.8 g/dL (12.0-15.0); Immature Granulocyte Percent A 0.5 % (0-0.5); Lymphocytes Absolute Auto 2.07 K/mm3 (0.9-3.2); Mean Corpuscular HGB Conc 34.3 g/dl (32-36); Mean Corpuscular Hemoglobin 30.3 pg (26-34); Mean Corpuscular Volume 88.4 fl (80-100); Nucleated Red Blood Cells Absolute Auto 0.000 K/mm3 (0.0-0.012); Nucleated Red Blood Cells Perc 0.0 % (0.0-0.2); Platelet Count Result 201 k/mm3 (150-375); Red Blood Count 3.89 M/mm3 (4.2-5.4); White Blood Count 8.8 K/mm3 (4.5-10.0)
[2025-05-11] MEDS: LACTATED RINGERS 1,000 ML 125 ML IV CONT ×3 (11:10→23:02)
[2025-05-11] MEDS: AMPICILLIN SODIUM 2 GM in SODIUM CHLORIDE 0.9% IV 100 ML 200 ML IVPB (11:11)
[2025-05-11] MEDS: OXYTOCIN 30 UNITS/NS 500 ML 30 UNITS/500 ML BAG IV CONT (11:11)
--- NOTE | 2025-05-11 11:17 | PM.IMHP ---
H&P: HPI History of Present Illness Date/Time: 05/11/25 11:17 Chief Complaint: Intrauterine at term Narrative: 29-year-old who presents at 39 weeks 6 days after spontaneous rupture of membranes. Review of Systems Cardiovascular: Cardiovascular: Denies chest pain, Denies leg edema, Denies palpitations, Denies dyspnea and Denies dyspnea on exertion Respiratory: Respiratory: Denies cough, Denies dyspnea and Denies dyspnea on exertion Gastrointestinal: Gastrointestinal: Denies abdominal pain, Denies constipation, Denies diarrhea, Denies nausea and Denies vomiting Genitourinary: Genitourinary: Denies hematuria, Denies urinary frequency, Denies dysuria, Denies pelvic pain, Denies urinary incontinence and Denies vaginal discharge Neurologic: Reports system reviewed and no additional complaints, except as documented Psychiatric: Psychiatric: Reports no additional psychiatric complaints Endocrine: Endocrine: Denies palpitations PMFSH Past Medical History Medical History Seizure Surgical History Surgical History Hx of appendectomy Family History Family History Grandparent Ovarian cancer Mother Diabetes mellitus Social History Social History Smoking status: Never smoker Second hand tobacco smoke exposure: No Alcohol intake: former Alcohol use details: pt currently Substance use: never Substance use type: does not use Do You Feel Safe in your Home?: Yes Lack of Transportation: No Lack of Food: Never True Current Housing: I Have Housing Concerned About Future Housing: No Difficulty Paying Gas/Electric Bills: No Difficulty Paying for Meds: No Currently Unemployed: No Education: High School Diploma/GED Difficulty w/ Childcare or Family Care: No Living arrangements: with family Additional living arrangements comments: single Occupation/Education: occupation Additional occupation/education comments: [employer] Gender identity (if verbalized by the patient): Female Sexual Orientation (if Verbalized by the Patient): Straight or Heterosexual Spiritual care concerns: No Meds Home Medications and Allergies Home Medications ?Medication ?Instructions ?Recorded ?Confirmed ?Type docosahexaenoic acid 200 mg mg PO 11/08/24 04/25/25 History capsule ( DHA) aspirin 81 mg tablet,delayed 81 mg PO DAILY 01/03/25 04/25/25 History release (Adult Low Dose Aspirin) ferrous sulfate 325 mg (65 mg 325 mg PO DAILY 03/02/25 04/25/25 History iron) tablet Allergies Allergy/AdvReac Type Severity Reaction Status Date / Time lamotrigine (From Lamictal) Allergy Mild Hives Verified 05/09/25 09:28 loratadine (From Claritin) AdvReac Mild Hives Verified 05/09/25 09:28 Exam Const: General: no acute distress Eyes: EOM: EOMs intact bilaterally Neck: Neck: supple Thyroid: thyroid normal Chest: Breast/axilla inspection: normal inspection of the breasts Breast/axilla palpation: normal palpation of the breasts, normal palpation of the axillae and no axillary lymphadenopathy Resp: Effort & Inspection: normal respiratory effort Auscultation: clear to auscultation bilaterally Cardio: Rate: regular rate Rhythm: regular rhythm GI: Inspection: non-distended and other (Gravid) GI Palp: Yes Soft to palpation, No Tenderness to palpation present (GI) and No Guarding due to palpation present (GI) Auscultation: normal bowel sounds : Speculum Exam - Vagina: No vaginal bleeding OB/external & speculum: external exam normal; No vaginal bleeding Skin: General skin exam: normal color and no rashes or lesions noted Neuro: Cognition (Neuro): normal cognition Speech: normal speech Extrem: General: normal to inspection Psych: Mental Status: mental status grossly normal Affect: normal affect H&P: Results Labs Labs: Short CBC 05/11/25 Range/Units 11:01 WBC 8.8 (4.5-10.0) K/mm3 Hgb 11.8 L (12.0-15.0) g/dL Hct 34.4 L (37.0-47.0) % Plt Count 201 (150-375) k/mm3 Assessment and Plan Assessment and plan (1) : Code(s): Z34.90 - Encounter for supervision of normal , unspecified, unspecified trimester Status: Acute Assessment and Plan: 29-year-old G1 who presents at 39 weeks 6 days after spontaneous rupture of membranes Admit to L&D Routine admission orders Rh positive GBS positive, will administer abx continuous EFM will augment with pitocin as needed may have epidural PRN
[2025-05-11] MEDS: AMPICILLIN SODIUM 1 GM in SODIUM CHLORIDE 0.9% IV 50 ML 100 ML IVPB ×3 (11:19→20:13)
--- OUTSIDE RECORDS SUMMARY | 2025-05-11 11:57 | XMS_ITS | Encounter Summary ---
Author Organization [facility] Address 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
--- OUTSIDE RECORDS SUMMARY | 2025-05-11 11:57 | XMS_ITS | Clinical Summary ---
Author Organization [facility] Address [address] [address] Phone Care Team Providers Care Fuselage Framer Name Role Phone Nicko Hameed MD Unavailable Nadia Liu Primary Care Provider + Allergies Active Allergy Reactions Criticality Noted Date Comments Lamotrigine Rash 05/15/2018 Medications No known medications Active Problems Problem Noted Date Diagnosed Date Dental infection 10/28/2024 and not yet delivered in first trimeste r 10/28/2024 Attention deficit hyperactivity disorder, inatte ntive type 06/26/2018 Adjustment disorder with anxiety 06/26/2018 BMI 39.0-39.9,adult 05/15/2018 Estimated Date of Delivery Comme nts Yes 05/12/2025 Resolved Problems Problem Noted Date Diagnosed Date Resolved Date Acute appendicitis with loca lized peritonitis, without perforation, abscess, or gangrene 07/21/2021 07/22/2021 Encounters Date Type Department Care Team Description 04/04/2025 Telephone [facility] [address] [place] [id number] Nadia Liu, [place] Advice Only 02/23/2025 Travel from Last 3 Months Immunizations Immunization Administration Dates Next Due Covid-19, Mrna, Lnp-s, Pf, 3 0 Mcg/0.3 Ml Dose ([employer]) 04/12/2021 Influenza Vaccine greater than 3 yrs 03/31/2014 Influenza Vaccine, Quadrivalent, PF 04/03/2020,1 ,05/15/2018 Influenza, Injectable, Quadrivalent 03/31/2016 TDAP Vaccine 10/22/2011 Family History Medical History Relation Name Comments No Known Problems Brother Hypertension Father Hypertension Maternal Grandfather Cancer Maternal Grandmother Santana Freire Ovarian cancer Ovarian Cancer Maternal Grandmother Santana Freire No Known Problems Mother No Known Problems Paternal Grandfather Relation Name Status Comments Brother Alive Father Alive Maternal Grandfather Maternal Grandmother Santana Freire Mother Alive Paternal Grandfather Paternal Grandmother Social History Tobacco Use Types Packs/Day Years Used Date Smoking Tobacco: Never Smokeless Tobacco: Never Tobacco Cessation:Counseling Given: Yes Alcohol Use Standard Drinks/Week Comments Yes 3 (1 standard drink = 0.6 oz pur e alcohol) weekend drinker [facility] Utilities Answer Date Recorded In the past 12 months has e electric, gas, oil, or water company threatened to shut off services in your home? No 08/10/2024 Social Connection and Isolation Panel Answer Date Recorded In a typical week, how many times do you talk on the phone with family, friends, or neighbors? More than three times a week 08/10/2024 How often do you get togethe r with friends or relatives? More than three times a week 08/10/2024 How often do you attend [facility] or [facility] services? Never 08/10/2024 Do you belong to [...] Total Score - Questions 1-9 0 07/31 [facility] - Occupational Stress [...] any time in the past 12 m [facility], were you homeless or living in a intermediate (including now)? No 08/10/2024 Education Answer Date Recorded What is the highest level of school you have completed or the highest degree you have received? Associate degree: occupational, technical, or vocational program 08/27/2022 Sexually Active Control Partners Comments Not Currently Oral Contraceptive Male Estimated Date of Delivery Comme nts Yes 05/12/2025 Sex and Gender Information Value Date Recorded Sex Assigned at Not on file Legal Sex Female 2:45 PM ASBESTOS SHINGLE ROOFER Gender Identity Not on file Sexual Orientation Not on file Last Filed Vital Signs Vital Sign Reading Time Taken Comments Blood Pressure 108/72 10/28/2024 9:59 AM CDT Pulse 86 10/28/2024 9:59 AM CDT Temperature 36.3 C (97.3 F) 10/28/2024 9:59 AM CDT Respiratory Rate 14 04/30/2024 11:48 AM CDT Oxygen Saturation 100% 10/28/2024 9:59 AM CDT Inhaled Oxygen Concentration - - Weight 100.7 kg (222 lb) 10/28/2024 9:59 AM CDT Height 165.1 cm (5' 5) 10/28/2024 9:59 AM CDT Body Mass Index 36.94 10/28/2024 9:59 AM CDT Plan of Treatment Health Maintenance Due Date Last Done Comments Hepatitis C Virus (HCV) Screening 1993 Hepatitis B Immunization (1 of 3 - 19+ 3-dose series) 2012 Human Papillomavirus (HPV) Immunization (1 - 3-dose SCDM series) 2020 Pap Smear 04/07/2022 04/07/2019 Influenza Immunization (#1) 02/28/202510/2019, 04/13/2019, 05/15/2018, Additional history exists SARS-COV-2 Immunization ( season) 2025 04/12/2021, 03/14/2021 Cervical Cancer Screening (CCS) 05/25/2029 HPV/Cotest 05/25/2029 05/25/2024 Td Immunization Every 10 Years (Adults With 1 Tdap) 02/24/2035 02/24/2025, 10/22/2011 Meningococcal Immunization (ACWY) Aged Out No longer eligible based on patient's age to complete this topic Pneumococcal Immunization Combined Aged Out No longer eligible based on patient's age to complete this topic Respiratory Syncytial Virus (RSV) Immunization (Adult) (No Doses Required) Completed Rotavirus Immunization Aged Out No lo nger eligible based on patient's age to complete this topic Procedures Procedure Name Priority Date/Time Associated Diagnosis Comments CBC WITH AUTO DIFFERENTIAL Routine 02/23/2025 9:29 AM CDT Encounter for supervision of normal , antepartum, unspecified HIV 1 & 2 ANTIBODY & ANTIGEN SCREEN Routine 02/23/2025 9:29 AM CDT Encounter for supervision of normal , antepartum, unspecified COMPLETE BLOOD COUNT (CBC) WITH DIFF Routine 02/23/2025 9:29 AM CDT Encounter for supervision of normal , antepartum, unspecified SYPHILIS IGG/IGM W/REFLEX Routine 02/23/2025 9:29 AM CDT Encounter for supervision of normal , antepartum, unspecified HIV 1 & 2 ANTIBODY & ANTIGEN SCREEN PANEL Routine 02/23/2025 9:29 AM CDT Encounter for supervision of normal , antepartum, unspecified POST LOAD GLUCOSE - GLPML Routine 02/23/2025 9:29 AM CDT Encounter for supervision of normal , antepartum, unspecified from Last 3 Months Results * HIV 1 & 2 ANTIBODY & ANTIGEN SCREEN (02/23/2025 9:29 AM CDT) [facility] [address] [facility] HIV 1 & 2 ANTIBODY & ANTIGEN SCREEN NON DETECTED NON DETECTED 02/23/2025 3:33 PM CDT [facility] Blood Venipuncture / Unknown 02/23/2025 9:29 AM CDT 02/23/2025 9:41 AM CDT us Juancarlos Nye MD CHEMISTRY ORDERABLES Final Res ult [facility] [address] [place] [address], * POST LOAD GLUCOSE - GLPML (02/23/2025 9:29 AM CDT) [facility] [address] DOSE 50 g 02/23/2025 11:18 AM CDT [facility] POSTLOAD GLUCOSE 107 70 - 140 mg/dL 02/23/2025 11:18 AM CDT [facility] Comment: 1 hr post 50 GM Load>140 mg/dL indicates the need for a full diagnostic Glucose Tolerance Test. Criteria from the National Diabetes Data Group of the NIH HOURS POST LOAD 1 11:18 AM CDT [facility] Blood Venipuncture / Unknown 02/23/2025 9:29 AM CDT 02/23/2025 9:41 AM CDT Juancarlos Nye MD CHEMISTRY ORDERABLES Final Res ult [facility] [address] [place] [address] * SYPHILIS IGG/IGM W/REFLEX (02/23/2025 9:29 AM CDT) Pathologist [facility] SYPHILIS IGG/IGM Nonreactive Nonreactive 02/23/2025 3:56 PM CDT [facility] Blood Venipuncture / Unknown 02/23/2025 9:29 AM CDT 02/23/2025 9:41 AM CDT Juancarlos Nye MD IMMUNOLOGY ORDERABLES Final Re sult [facility] [address] [place] [address], [place] * (ABNORMAL) CBC WITH AUTO DIFFERENTIAL (02/23/2025 9:29 AM CDT) WBC 8.05 4.00 - 12.00 10(3)/mcL 02/23/2025 9:44 AM CDT [facility] RBC 3.47(L) 3.80 - 5.30 10(6)/mcL 02/23/2025 9:44 AM CDT [facility] HEMOGLOBIN (HGB) 10.3(L) 12.0 - 15.8 g/dL 02/23/2025 9:44 AM CDT [facility] HEMATOCRIT (HCT) 31.9(L) 36.0 - 47.0 % 02/23/2025 9:44 AM CDT [facility] MCV 91.9 82.0 - 96.0 fL 02/23/2025 9:44 AM CDT [facility] MCH 29.7 26.0 - 34.0 pg 02/23/2025 9:44 AM CDT [facility] MCHC 32.3 31.0 - 36.0 g/dL 02/23/2025 9:44 AM CDT [facility] PLATELET COUNT 205 140 - 440 10(3)/mcL 02/23/2025 9:44 AM CDT [facility] RDW 13.8 11.8 - 15.5 % 02/23/2025 9:44 AM CDT [facility] MPV 11.2 9.7 - 12.4 fL 02/23/2025 9:44 AM CDT [facility] NEUTROPHILS 70.2 47.0 - 73.0 % 02/23/2025 9:44 AM CDT [facility] LYMPHOCYTES 22.0 18.0 - 42.0 % 02/23/2025 9:44 AM CDT [facility] MONOCYTES 3.6(L) 4.0 - 12.0 % 02/23/2025 9:44 AM CDT [facility] EOSINOPHILS 3.2 0.0 - 5.0 % 02/23/2025 9:44 AM CDT [facility] BASOPHILS 0.5 0.0 - 1.0 % 02/23/2025 9:44 AM CDT [facility] IMMATURE GRANULOCYTE 0.5(H) 0.0 - 0.4 % 02/23/2025 9:44 AM CDT [facility] Comment:Immature Granulocyte s includes Metamyelocytes, Myelocytes, and Promyelocytes. ABSOLUTE NEUTROPHILS 5.65 1.60 - 7.70 10(3)/mcL 02/23/2025 9:44 AM CDT [facility] ABSOLUTE LYMPHOCYTES 1.77 1.30 - 3.20 10(3)/mcL 02/23/2025 9:44 AM CDT [facility] ABSOLUTE MONOCYTES 0.29 0.20 - 1.00 10(3)/mcL 02/23/2025 9:44 AM CDT [facility] ABSOLUTE EOSINOPHIL 0.26 0.00 - 0.40 10(3)/mcL 02/23/2025 9:44 AM CDT [facility] ABSOLUTE BASOPHILS 0.04 0.00 - 0.10 10(3)/mcL 02/23/2025 9:44 AM CDT [facility] ABSOLUTE IMMATURE GRANULOCYTE 0.04(H) 0.00 - 0.03 10 (3) mcL. 02/23/2025 9:44 AM CDT [facility] NRBC PER 100 WBC 0 02/24/20 9:44 AM CDT [facility] Blood Venipuncture / Unknown 02/23/2025 9:29 AM CDT 02/23/2025 9:41 AM CDT us Juancarlos Nye MD HEMATOLOGY ORDERABLES Final Re sult [facility] [address] [place] [address] from Last 3 Months Insurance MEDICAID [place] Advance Directives * Full Code (Latest Code [...] PM new pharmacy , 02/03/20 Care Teams Fuselage Framer Relationship Specialty Start Date End Date Nadia Liu [address] [place] [address] PCP - General Physician Brand Ambassador Promotional Model 08/12/24 Nicko Hameed MD [address] [address] Consulting Physician Colon and Rectal Surgery 08/07/21
--- OUTSIDE RECORDS SUMMARY | 2025-05-11 11:57 | XMS_ITS | Clinical Summary ---
Author Organization [address] Address [address] [place] [address] Care Team Providers Care Hvac R Tech Name Role Phone Nadia Liu Primary Care Provider + [phone] Allergies Active Allergy Reactions Criticality Noted Date Comments Lamotrigine Hives,Rash High 05/15/2018 Medications No known medications Active Problems Problem Noted Date Diagnosed Date Hypokalemia 08/08/2024 Pneumonia of left lower lobe due to infectious o rganism 08/07/2024 Estimated Date of Delivery Comme nts Yes 05/12/2025 Surgical History Surgery Date Site/Laterality Comments APPENDECTOMY [...] making you feel afraid or unsafe? Denies 01/14/2025 Estimated Date of Delivery Comme nts Yes 05/12/2025 Sex and Gender Information Value Date Recorded Sex Assigned at Not on file Legal Sex Female 12:42 PM BLUE LINE OPERATOR Gender Identity Not on file Sexual Orientation Not on file Obstetrics History Para Term AB IAB SAB Ectopic Multiple Livin g Live Births 1 Date Outcome GA Total Labor Labor/2nd/3rd Weight Sex Type Anes PTL Danielle A1 A5 Name Clin Current Last Filed Vital Signs Vital Sign Reading Time Taken Comments Blood Pressure 104/66 01/14/2025 4:13 PM CDT Pulse 85 01/14/2025 4:13 PM CDT Temperature 36.7 C (98.1 F) 01/14/2025 12:18 PM CDT Respiratory Rate 18 01/14/2025 4:13 PM CDT Oxygen Saturation 100% 01/14/2025 4:13 PM CDT Inhaled Oxygen Concentration - - Weight 98.9 kg (218 lb) 08/08/2024 4:39 AM BLUE LINE OPERATOR Height 165.1 cm (5' 5) 01/14/2025 12:18 PM CDT Body Mass Index 36.28 08/08/2024 4:39 AM BLUE LINE OPERATOR Plan of Treatment Health Maintenance Due Date Last Done Comments Cervical Cancer Screening 1993 Depression Screening 1993 Hepatitis C Screening 1993 Varicella Vaccines (1 of 2 - 13+ 2-dose series) 2006 Hepatitis B Screening 2011 Regular Well Visit/Exam 18-64 2011 HPV Vaccines (1 - 3-dose SCDM series) 2020 DTaP/Tdap/Td Vaccine (2 - Td or Tdap) 10/21/2021 10/22/2011 Covid-19 Vaccine (3 - season) 2025 04/12/2021, 03/14/2021 Influenza Vaccine (#1) 2025 , 04/13/2019, 05/15/2018, Additional history exists Pneumococcal vaccine <65 Aged Out No longer eligible based on patient's age to complete this topic Insurance [facility] Advance Directives For more information, please contact: [phone] * Full Code (Latest Code Status on File) Date Activated Date Inactivated Comments 08/08/2024 12:44 PM 08/08/2024 7:19 PM Care Teams Hvac R Tech Relationship Specialty Start Date End Date Nadia Liu PA [address] [place] [address] PCP - General Boiler Operators Supervisor 08/08/24
--- OUTSIDE RECORDS SUMMARY | 2025-05-11 11:57 | XMS_ITS | Encounter Summary ---
Author Organization [facility] Address [address] [place] [address] Care Team Providers Care Wood Fence Installer Name Role Phone Rabia Roblero MD Primary Care Provider Encounter Details Date Type Department Care Team (Late st Contact Info) Description 06/11/2005 Outpatient Historical [facility] Tolentino Child Development Griffin [place] [phone] Kyle Rojas, PhD NO ADDRESS ON FILE Social History Tobacco Use Types Packs/Day Years Used Date Smoking Tobacco: Never Assessed Comments Unknown Sex and Gender Information Value Date Recorded Sex Assigned at Not on file Legal Sex Female 3:01 AM PRIMARY PRODUCTS INSPECTORS Gender Identity Not on file Sexual Orientation Not on file documented as of this encounter Plan of Treatment Not on file documented as of this encounter Visit Diagnoses Not on filedocumented in this encounter Care Teams Wood Fence Installer Relationship Specialty Start Date End Date Rabia Roblero MD PCP - General Internal Medicine 04/07/19 documented as of this encounter
--- OUTSIDE RECORDS SUMMARY | 2025-05-11 11:57 | XMS_ITS | Clinical Summary ---
Author Organization [facility] Address [address] [place] [address] Phone Care Team Providers Care Farm Butcher Name Role Phone Rabia Roblero MD Primary [...] Encounters Date Type Department Care Team Description 03/29/2025 External Device Data STL ABSTRACTION Provider, Abstract [...] on file Legal Sex Female 3:01 AM CUSTOMER MARKETING MANAGER Gender Identity Not on file Sexual Orientation Not on file Last Filed Vital Signs Vital Sign Reading Time Taken Comments Blood Pressure 124/74 05/25/2024 11:21 AM CUSTOMER MARKETING MANAGER Pulse - - Temperature - - Respiratory Rate - - Oxygen Saturation - - Inhaled Oxygen Concentration - - Weight 103.2 kg (227 lb 9.6 oz) 024 11:21 AM CUSTOMER MARKETING MANAGER Height 166 cm (5' 5.35) 05/25/2024 11: 21 AM CUSTOMER MARKETING MANAGER Body Mass Index 37.47 05/25/2024 11:21 AM CUSTOMER MARKETING MANAGER Plan of Treatment Health Maintenance Due Date Last Done Comments HEPATITIS B VACCINES (1 of 3 - 19+ 3-dose series) 2012 HPV VACCINES (1 - 3-dose SCD M series) 2020 DTAP/TDAP/TD VACCINES (2 - T d or Tdap) 10/21/2021 10/22/2011 INFLUENZA VACCINE (#1) 2025 , 04/13/2019, 05/15/2018, Additional history exists COVID-19 Vaccine (2 - 2024-2 6 season) 2025 04/12/2021 PAP SMEAR 05/25/2027 05/25/2024, 12/28, 04/07/2019 CERVICAL CANCER SCREENING 05/25/2029 HPV/Cotest (21-29) 05/25/2029 05/25/2024 HPV/Cotest (30-65) 05/25/2029 05/25/2024 Procedures Procedure Name Priority Date/Time Associated Diagnosis Comments CERV/VAG CYTO AGE BASED SCREEN PAP Routine 05/25/2024 11:40 AM CUSTOMER MARKETING MANAGER Encounter for gynecological examination without abnormal finding from Last 3 Months or Most Recently Relevant to Health Maintenance Results * CERV/VAG CYTO AGE BASED SCREEN PAP (05/25/2024 11:40 AM CUSTOMER MARKETING MANAGER) COMMENT (PAP): [facility] Comment: This order for age-based cervical cancer and STI screening follows ACOG guidelines(PB 168, 140, FRC096). See individual assays for performing site location. CLINICAL INFORMATION [facility] [place] Comment:None given LAST MENSTRUAL PERIOD [facility] [place] Comment:05/04/24 PREV PAP: [facility] [place] Comment:None given PREV BX: [facility] [place] Comment:None given SOURCE [facility] [place] Comment:Endocervix ADEQUACY: [facility] [place] Comment: Satisfactory for evaluation. Endocervical/transformation zone component absent. PAP INTERP [facility] [place] Comment: Cytology Results: Negative for intraepithelial lesion or malignancy. CYTOLOGY INFECTION [facility] [place] Comment: Shift in vaginal nancy suggestive of bacterial vaginosis. COMMENT (PAP TEST) [facility] [place] Comment: This Pap test has been evaluated with computer assisted technology. AVIONICS ELECTRONICS TECHNICIAN: [facility] [place] Comment: LMT, CT(ASCP) CT screening location: [place] [address] [place] [address] REVIEW AVIONICS ELECTRONICS TECHNICIAN: [facility]ginbothama Comment: CLAL, CT(ASCP) CT Screening location: [facility] [address] [place] [address] EXPLANATORY NOTE [facility] [place] Comment: EXPLANATORY NOTE: The Pap is a [...] information. HPV E6/E7 Not Detected Not Detected [facility] [place] Comment: Methodology: Correctional Supervisor-Mediated Amplification This assay detects E6/E7 viral messenger RNA (mRNA) from 14 high-risk HPV types (16,18,31,33,35,39,45,51,52,56,58,59,66,68). Cervical sources are required for HPV testing. If a vaginal source from a patient who has had a total hysterectomy with removal of cervix was submitted, please contact the testing laboratory for alternative testing options. For additional information, please refer to http://education.[employer]/faq/VSS608e3 (This link if provided for information/ educational purposes only.) Test Performed at: [facility] [address] [place] [address] Taylor-Lieu T Vo MD SL Genital SWAB OF ENDOCERVIX / Unknown 05/25/2024 11:40 AM CUSTOMER MARKETING MANAGER 05/26/2024 2:14 AM CUSTOMER MARKETING MANAGER Dagmar Zavala MD PATHOLOGY/CYTOLOGY ORDERAB LES Final Result [facility] [phone] [facility] [address] [place] [address] from Last 3 Months or Most Recently Relevant to Health Maintenance Insurance MADS [id number] Care Teams Farm Butcher Relationship Specialty Start Date End Date Rabia Roblero MD PCP - General Internal Medicine 04/07/19
--- OUTSIDE RECORDS SUMMARY | 2025-05-11 11:57 | XMS_ITS | Encounter Summary ---
Author Organization [facility] Address [address] [place] [address] Phone Care Team Providers Care Sketch Liner Name Role Phone Rosalia Louie MD Primary Care Provider [phone] Nicko Hameed MD Unavailable Provider, None Primary Care Provider Nadia Lucero Primary Care Provider + Reason for Visit * Reason Comments Medication Refill Encounter Details Date Type Department Care Team (Late st Contact Info) Description 07/28/2021 Refill [facility] [address] [place] [address] [place] [address] [place] [address] Medication Refill Social History Tobacco Use Types [...] on file Legal Sex Female 2:45 PM OIL LEASE OPERATOR Gender Identity Not on file Sexual Orientation Not on file COVID-19 Exposure Response Date Recorded In the last month, have you been in contact with someone who was confirmed or suspected to have Coronavirus / COVID-19? No / Unsure 07/21/2021 3:30 PM OIL LEASE OPERATOR documented as of this encounter Miscellaneous Notes * Telephone Encounter - Nicole Denise CMA - 08/31/2021 10:28 AM OIL LEASE OPERATOR Patient has an appointment on 09/05/[address] Lindsey LEASE OPERATOR * Telephone Encounter - Anali Hernandez RN - 07/30/2021 2:46 PM CST See MD note below LEASE OPERATOR * Telephone Encounter - Rosalia Louie MD - 07/30/2021 2:39 PM OIL LEASE OPERATOR Pap needed LEASE OPERATOR * Telephone Encounter - Anali Hernandez RN [...] Provider Dept 07/05/21 Telemedicine Tim Stewart MD [facility] 03/28/21 Office Visit Rosalia Louie MD [facility] 09/07/20 Office Visit Rosalia Louie MD [facility] Showing recent visits within past 365 days and meeting all other requirements Future Appointments Date Type Provider Dept 08/02/21 Appointment Rosalia Louie MD [facility] Showing future appointments within next 90 days and meeting all other requirements Passed - No active on record Passed - Up to date with pap smear Health Maintenance LEASE OPERATOR documented in this encounter Plan of Treatment Not on file documented as of this encounter Visit Diagnoses Not on filedocumented in this encounter Additional Health Concerns Infection Onset Date Last Indicated Resolved Time COVID - 19 12/13/2021 12/13/2021 12/23/2021 12:1 9 AM CDT COVID - 19 01/08/2022 01/08/2022 01/18/2022 12:1 6 AM CDT COVID - 19 08/28/2022 08/28/2022 09/07/2022 12:1 6 AM OIL LEASE OPERATOR COVID - 19 04/30/2024 04/30/2024 04/30/2024 3:11 PM CDT Assessment Noted Time PHQ-9 Depression Total Score: 0 09/08/19 21 9:00 AM OIL LEASE OPERATOR documented as of this encounter Care Teams Sketch Liner Relationship Specialty Start Date End Date Rosalia Louie MD PCP - General Family Medicine 05/15/18 12/15/23 Provider, None [place] PCP - General 04/30/24 08/11/24 Nadia Liu PAC [address] [place] [address] PCP - General Physician Clinical Social Worker 08/12/24 Nicko Hameed MD [address] [address] Consulting Physician Colon and Rectal Surgery 08/07/21 documented as of this encounter
--- OUTSIDE RECORDS SUMMARY | 2025-05-11 11:57 | XMS_ITS | Encounter Summary ---
Author Organization [facility] Address [address] [place] [address] Care Team Providers Care Repairer Recreational Vehicle Name Role Phone Rabia Roblero MD Primary Care Provider Encounter Details Date Type Department Care Team (Late st Contact Info) Description 06/10/2005 Outpatient Historical [facility] [address] [place] [address] Kyle Rojas, PhD NO ADDRESS ON FILE Social History Tobacco Use Types Packs/Day Years Used Date Smoking Tobacco: Never Assessed Comments Unknown Sex and Gender Information Value Date Recorded Sex Assigned at Not on file Legal Sex Female 3:01 AM HOUSE OFFICER Gender Identity Not on file Sexual Orientation Not on file documented as of this encounter Plan of Treatment Not on file documented as of this encounter Visit Diagnoses Not on filedocumented in this encounter Care Teams Repairer Recreational Vehicle Relationship Specialty Start Date End Date Rabia Roblero MD PCP - General Internal Medicine 04/07/19 documented as of this encounter
--- OUTSIDE RECORDS SUMMARY | 2025-05-11 11:57 | XMS_ITS | Encounter Summary ---
Author Organization [facility] Address [address] [place] [address] Care Team Providers Care Track Production Engineer Name Role Phone Rabia Roblero MD Primary Care Provider Encounter Details Date Type Department Care Team (Late st Contact Info) Description 06/27/2005 Outpatient Historical [facility] [address] [place] [id number] Kyle Rojas, PhD NO ADDRESS ON FILE Social History Tobacco Use Types Packs/Day Years Used Date Smoking Tobacco: Never Assessed Comments Unknown Sex and Gender Information Value Date Recorded Sex Assigned at Not on file Legal Sex Female 3:01 AM CONCRETE CARPENTER Gender Identity Not on file Sexual Orientation Not on file documented as of this encounter Plan of Treatment Not on file documented as of this encounter Visit Diagnoses Not on filedocumented in this encounter Care Teams Track Production Engineer Relationship Specialty Start Date End Date Rabia Roblero MD PCP - General Internal Medicine 04/07/19 documented as of this encounter
--- OUTSIDE RECORDS SUMMARY | 2025-05-11 11:57 | XMS_ITS | Encounter Summary ---
Author Organization [facility] Address [address] [place] [address] Phone Care Team Providers Care Front End Engineer Name Role Phone Rosalia Louie MD Primary Care Provider [phone] Nicko Hameed MD Unavailable Provider, None Primary Care Provider UnavailNadia Jennings Primary Care Provider + Reason for Visit * Reason Comments Medication Refill Encounter Details Date Type Department Care Team (Late st Contact Info) Description 12/31/2022 Refill [facility] [address] [place] [address] [place] [address] [place] [address] Medication Refill Social History Tobacco Use Types [...] on file Legal Sex Female 2:[address] GANG SUPERVISOR Gender Identity Not on file Sexual Orientation [...] Dept 08/28/22 Office Visit Rosalia Louie MD [facility] Showing recent visits within past 365 days [...] Total Score: 0 09/08/19 21 9:[address] GANG SUPERVISOR documented as of this encounter Care Teams Front End Engineer Relationship Specialty Start Date End Date Rosalia Louie MD PCP - General Family Medicine 05/15/18 12/15/23 Provider, None [place] PCP - General 04/30/24 08/11/24 Nadia Liu PAC [address] [place] [address] PCP - General Physician Ob Scrub Tech 08/12/24 Nicko Hameed MD [address] [place] [address] Consulting Physician Colon and Rectal Surgery 08/07/21 documented as of this encounter
--- OUTSIDE RECORDS SUMMARY | 2025-05-11 11:57 | XMS_ITS | Encounter Summary ---
Author Organization [facility] Address 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
[2025-05-11 12:33] LABS: Syphilis IgG/IgM Antibody Non-Reactive (Nonreactive)
[2025-05-11 16:15] LABS: OBXCEM ROM Plus Positive (Negative)
--- NOTE | 2025-05-11 19:16 | P.PNAN_ITS ---
Anes - Eval Pre Procedure Procedure: labor pain management Date/Time: 05/11/25 19:16 Surgeon: jolene Preop Diagnosis: pain during labor Pre Op Diagnosis: Labor Patient Data Age: 29 Gender: F Height: 1.65 m Weight: 117 kg Last Vital Signs Temp 97.7 F 05/11/25 16:25 Pulse 79 05/11/25 19:01 BP 116/75 05/11/25 19:01 O2 Del Method Room Air 05/11/25 11:26 Allergies Allergy/AdvReac Type Severity Reaction Status Date / Time lamotrigine (From Lamictal) Allergy Mild Hives Verified 05/11/25 11:34 loratadine (From Claritin) AdvReac Mild Hives Verified 05/11/25 11:34 Home Medications ?Medication ?Instructions ?Recorded ?Confirmed ?Type docosahexaenoic acid 200 mg mg PO 11/08/24 04/25/25 Hi story capsule ( DHA) aspirin 81 mg tablet,delayed 81 mg PO DAILY 01/03/25 1 07/11/24 History release (Adult Low Dose Aspirin) ferrous sulfate 325 mg (65 mg 325 mg PO DAILY 03/02/25 05/11/25 History iron) tablet Laboratory Tests 05/11/25 05/11/25 11:01 16:14 WBC 8.8 K/mm3 (4.5-10.0) RBC 3.89 L M/mm3 (4.2-5.4) Hgb 11.8 L g/dL (12.0-15.0) Hct 34.4 L % (37.0-47.0) MCV 88.4 fl (80-100) MCH 30.3 pg (26-34) MCHC 34.3 g/dl (32-36) RDW 13.6 % (11.5-14.5) Plt Count 201 k/mm3 (150-375) MPV 11.6 H fl (7.4-10.4) Immature Gran % (Auto) 0.5 % (0-0.5) Neut % (Auto) 69.7 % (45.5-73.1) Lymph % (Auto) 23.7 % (18.3-44.2) Marion % (Auto) 4.3 % (2.6-8.5) Eos % (Auto) 1.5 % (0-4.4) Baso % (Auto) 0.3 % (0.2-1.2) Lymph # (Auto) 2.07 K/mm3 (0.9-3.2) Marion # (Auto) 0.4 K/mm3 (0.1-0.6) Eos # (Auto) 0.1 K/mm3 (0-0.3) Baso # (Auto) 0.0 K/mm3 (0.0-0.1) Abs Immat Gran (auto) 0.04 H K/mm3 (0.00-0.031) Absolute Neuts (auto) 6.1 K/mm3 (1.3-6.7) Absolute Nucleated RBC 0.000 K/mm3 (0.0-0.012) Nucleated RBC % 0.0 % (0.0-0.2) Membranes Rupture Rom plus positive (Negative) Syphilis IgG/IgM Ab Non-reactive (Nonreactive) Blood Type O Positive Antibody Screen Negative Patient hx anesthesia problems: none Family hx anesthesia problems: none Results Review: All pre-operative results and documents have been reviewed as part of the pre- operative evaluation. [facility] Past Medical History Medical History Seizure Surgical History Surgical History Hx of appendectomy Family History Family History Grandparent Ovarian cancer Mother Diabetes mellitus Social History Social History Smoking status: Never smoker Second hand tobacco smoke exposure: No Alcohol intake: former Alcohol use details: pt currently Substance use: never Substance use type: does not use Do You Feel Safe in your Home?: Yes Lack of Transportation: No Lack of Food: Never True Current Housing: I Have Housing Concerned About Future Housing: No Difficulty Paying Gas/Electric Bills: No Difficulty Paying for Meds: No Currently Unemployed: No Education: Associate Degree Difficulty w/ Childcare or Family Care: No Living arrangements: with family Additional living arrangements comments: single Occupation/Education: occupation Additional occupation/education comments: [employer] Gender identity (if verbalized by the patient): Female Sexual Orientation (if Verbalized by the Patient): Straight or Heterosexual Spiritual care concerns: No Exam Day of Procedure 05/11/25 19:16
[2025-05-11] MEDS: FAMOTIDINE 20 MG/2 ML VIAL IV PUSH (23:43)
[2025-05-11] MEDS: ONDANSETRON INJ 4 MG/2 ML VIAL IV PUSH (23:48)
[2025-05-12] VITALS (177 sets, daily range): BP systolic 87–144; BP diastolic 36–128; PULSE 53–151; RESP 15–18; TEMP 36.6–37; O2SAT 91–100
[2025-05-12] MEDS: AMPICILLIN SODIUM 1 GM in SODIUM CHLORIDE 0.9% IV 50 ML 100 ML IVPB ×2 (01:04→05:12)
[2025-05-12] MEDS: PHENYLEPHRINE 1,000 MCG/10 ML SYRINGE 100 MCG IV PUSH (05:20)
[2025-05-12] MEDS: SODIUM CHLORIDE 0.9% IV 300 ML 600 ML I-UTERINE (07:39)
[2025-05-12] MEDS: LACTATED RINGERS 1,000 ML 125 ML IV CONT (08:06)
--- NOTE | 2025-05-12 08:34 | PM.OBPNLAB ---
Pain Control Date/time seen: 05/12/25 08:34 Pain control: epidural Pelvic Exam Dilation (cm): 3 Contractions Monitor mode: External Contraction pattern: Regular Contraction intensity: Moderate Status status: Category ll Comments: Recurrent late decelerations Assessment and Plan Assessment: induction ongoing Plan: Comments: heart tones consistent with recurrent late decelerations. Patient currently with prolonged rupture of membranes. Cervix is 3 cm, remote from delivery. Given arrest of dilation and intolerance of labor, recommended proceeding with primary . Risks, benefits reviewed. Patient consented to proceed with primary
[2025-05-12] MEDS: ACETAMINOPHEN 500 MG TABLET 1000 MG PO ×3 (09:20→21:15)
[2025-05-12] MEDS: FAMOTIDINE 20 MG/2 ML VIAL IV PUSH (09:23)
[2025-05-12] MEDS: ONDANSETRON INJ 4 MG/2 ML VIAL IV PUSH ×2 (09:23→15:08)
--- NOTE | 2025-05-12 10:26 | W.PM.OBCSD ---
OB - Delivery Note Procedure Delivery date: 05/12/25 Pre-op diagnosis: Arrest of Dilation and Non-Reassuring Status Post-op Diagnosis: Same Induction method: None Delivery augmentation: Pitocin Delivery monitor: External FHT and Internal Uterine Prior to decision for section, ACOG/SMFM labor guidelines were considered and discussed with the patient and staff. Decision made to proceed with the section.: Yes Procedure Performed: Primary Primary branch: low cervical, transverse Surgeon: Alton Gonzalez MD Anesthesia type: Epidural Description of Procedure/Findings: he patient was taken to the operating room. A combined spinal epidural anesthesic was administered and found to be adequate at a t-10 level. The patient was placed in a supine position with a slight left lateral tilt. A plasencia catheter was placed with return of clear urine. A Bovie grounding pad was placed. Surgical prep was performed and surgical drapes were placed. A surgical time out was performed. A Pfannenstiel skin incision was then made with the scalpel and carried through to the underlying layer of fascia. The fascia was then incised in the midline and the incision was extended laterally with the Arreola scissors. The superior aspect of the fascia was then grasped with the John clamps, elevated, and the underlying rectus muscles dissected off bluntly and sharply. Attention was then turned to the inferior aspect of this incision which, in a similar fashion, was grasped, tented up with the John clamps, and the rectus muscles dissected off both bluntly and sharply. The rectus muscles were then in the midline. The peritoneum was identified and entered bluntly. The peritoneal incision was then extended superiorly and inferiorly with good visualization of the bladder. The vesico-uterine serosa was identified and dissected to create a bladder flap. The bladder blade was reinserted. The uterus was inspected for rotation. A low-transverse uterine incision was made sharply with the scalpel and entry was made into the uterine cavity. An amniotomy was made and copious amounts of clear fluid were noted on return. The uterine incision was extended laterally bluntly. The bladder blade was removed and the fetus was delivered atraumatically. A nuchal cord x1 was noted and reduced easily. The nose and mouth were suctioned with a bulb syringe. The umbilical cord was clamped twice and cut. The was handed off to the waiting staff. At the time of the delivery, the had good color, tone and grimace. The cried with minimal stimulation. A second segment of umbilical cord was clamped and cut for cord blood gasses. Cord blood was collected for determination of the blood type and for direct Gregg. The placenta was delivered spontaneously without difficulty. The placenta appeared grossly normal and complete. The uterus was exteriorized and cleared of all clots and debris. The uterine incision was repaired using 0-monocryl suture in a running fashion. A second layer of 0 Monocryl suture was used in an imbricating fashion to obtain excellent hemostasis and uterine strength. The uterine closure was inspected for hemostasis. The posterior aspect of the uterus and the broad ligaments were inspected and the posterior cul-de-sac cleared of fluid and blood clots. The uterine closure was again inspected and found to be hemostatic. The uterus was returned to the abdominal cavity. The pericolic gutters were inspected and were cleared of all blood clots and debris. The uterine closure was then re inspected to ensure hemostasis as were all subfascial tissues. The peritoneum was closed using 3-0 vicryl in a running fashion. The fascia was reapproximated with 0-vicryl in a running fashion. The subcutaneous tissue was irrigated and hemostasis achieved with electrocautery. It was reapproximated with 3-0 vicryl in a running fashion. The skin was closed with 4-0 vicryl in a subcuticular fashion. A sterile dressing was applied to the wound. The patient tolerated the procedure well. Sponge, lap and needle counts were correct times three. The patient was taken to recovery in stable condition and without anticipated complications. Specimen: Yes (placenta) Estimated Blood Loss: 755 Urine Output: 700 Drains: No Packing: No Pathology: Yes (placenta) Complications: No immediate complications Condition: Stable Disposition: Floor Baby Date of : 05/12/25 Gestational Age by Date: 39 Infant gender: Male presentation: vertex Placenta delivery description: Manual Removal Cord Vessel Description: 3 Vessels and Nuchal Cord
--- NOTE | 2025-05-12 11:15 | S_PTH ---
PATIENT: Catalina Nava LOC: [facility] U#:[id number] AGE/SX: 29/F ROOM: 284 RE05/11/[address]: Merced Sawant MD : 1995 BED: 00 DIS: 05/14/2025 SPEC #: [id number] RECD: 05/16/25 10:56 STATUS: CANDICE REQ #: [id number] NASEEM: 05/12/25 11:[address]: Alton Gonzalez DEPT: [facility] Surgical RECD BY: Dianne Lawton ENTERED: 05/16/25 10:56 SP TYPE: Surgical OTHR DR: Nadia Liu, PA Juancarlos Nye MD Tissues: A - Placenta Procedures: Hematoxylin and Eosin Stain Gross and Microscopic Level 5
--- NOTE | 2025-05-12 13:15 | OBPPTRN ---
Patient transferred to post room #284 via stretcher. Support person present. Oriented to unit, room, information board, rooming in, admission packet and security measures. Patient verbalizes understanding.
[2025-05-12] MEDS: LIDOCAINE 5% PATCH 1 PATCH TRANSDERM (15:05)
[2025-05-12] MEDS: KETOROLAC 15 MG/ML VIAL (*BKC) IV PUSH ×2 (15:05→21:15)
[2025-05-12] MEDS: DEXTROSE 5%/0.45% SOD CHL 1,000 ML 125 ML IV CONT (17:39)
[2025-05-12] MEDS: SIMETHICONE 80 MG TAB.CHEW PO (17:41)
[2025-05-12] MEDS: DOCUSATE SODIUM 100 MG CAPSULE PO (17:41)
[2025-05-12] MEDS: oxyCODONE HCL (*CRX) 5 MG TAB IR PO (17:46)
[2025-05-13] MEDS: KETOROLAC 15 MG/ML VIAL (*BKC) IV PUSH (03:35)
[2025-05-13] MEDS: ACETAMINOPHEN 500 MG TABLET 1000 MG PO ×3 (03:35→16:30)
[2025-05-13 04:00] VITALS: BP 120/76; PULSE 80; RESP 16; TEMP 36.8; O2SAT 100
[2025-05-13 05:05] LABS: Hematocrit 27.4 % (37.0-47.0); Hemoglobin 8.9 g/dL (12.0-15.0); Immature Granulocyte Percent A 0.5 % (0-0.5); Lymphocytes Absolute Auto 2.46 K/mm3 (0.9-3.2); Mean Corpuscular HGB Conc 32.5 g/dl (32-36); Mean Corpuscular Hemoglobin 30.5 pg (26-34); Mean Corpuscular Volume 93.8 fl (80-100); Nucleated Red Blood Cells Absolute Auto 0.000 K/mm3 (0.0-0.012); Nucleated Red Blood Cells Perc 0.0 % (0.0-0.2); Platelet Count Result 149 k/mm3 (150-375); Red Blood Count 2.92 M/mm3 (4.2-5.4); White Blood Count 13.1 K/mm3 (4.5-10.0)
[2025-05-13 07:50] VITALS: BP 111/56; PULSE 81; RESP 18; TEMP 36.8; O2SAT 98
[2025-05-13] MEDS: SIMETHICONE 80 MG TAB.CHEW PO ×2 (09:09→16:30)
[2025-05-13] MEDS: MULTIVIT/MIN/PREN/FOL AC/IRON TABLET 1 TAB PO (09:09)
[2025-05-13] MEDS: DOCUSATE SODIUM 100 MG CAPSULE PO ×2 (09:10→16:30)
[2025-05-13] MEDS: IBUPROFEN 600 MG TABLET PO ×2 (09:11→16:30)
--- NOTE | 2025-05-13 12:56 | PM.OBPNVD ---
OB - PN: Subj Subjective Date/time seen: 05/13/25 12:56 Narrative: POD#1 Catalina reports doing well today. 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 Her pain is controlled. She is tolerating regular diet, voiding, passing gas, and ambulating without issues. She denies any issues with her incision. She is breast feeding. She would like her son circumcised. OB - PN: Obj Data Labs 05/13/25 03:44 Labs: Laboratory Results - last 24 hr 05/13/25 03:44 WBC 13.1 H RBC 2.92 L Hgb 8.9 L Hct 27.4 L MCV 93.8 D MCH 30.5 MCHC 32.5 RDW 13.8 Plt Count 149 L MPV 11.8 H Immature Gran % (Auto) 0.5 Neut % (Auto) 74.2 H Lymph % (Auto) 18.8 [place] % (Auto) 4.8 Eos % (Auto) 1.4 Baso % (Auto) 0.3 Lymph # (Auto) 2.46 [place] # (Auto) 0.6 Eos # (Auto) 0.2 Baso # (Auto) 0.0 Abs Immat Gran (auto) 0.06 H Absolute Neuts (auto) 9.7 H Absolute Nucleated RBC 0.000 Nucleated RBC % 0.0 OB - PN A/P Assessment and Plan (1) delivery delivered: Code(s): O82 - Encounter for delivery without indication Status: Acute Plan day: 1 Plan: routine care Comments: - PO pain meds - Regular diet - Ambulation and hydration encouraged - Continue putting baby to breast q2-3hr Time Spent With Patient Time: Total time spent is greater than 50% in coordination of care (as documented) at patient's floor/unit and/or counseling patient: Review of Systems Constitutional: Constitutional: Denies chills, Denies fever(s) and Denies headache(s) Eyes: Eyes: Denies change in vision ENT: Denies dizziness and Denies headache(s) Cardiovascular: Cardiovascular: Denies chest pain, Denies palpitations and Denies dyspnea Respiratory: Respiratory: Denies cough and Denies dyspnea Gastrointestinal: Gastrointestinal: Denies nausea and Denies vomiting Genitourinary: Comments: normal bleeding Neurologic: Denies dizziness and Denies headache(s) Endocrine: Endocrine: Denies palpitations Exam Const: General: cooperative, comfortable and no acute distress Orientation/consciousness: patient oriented x3 Resp: Effort & Inspection: normal respiratory effort Auscultation: clear to auscultation bilaterally Cardio: Rate: regular rate GI: Inspection: non-distended and incision (covered with clean dressing) GI Palp: Yes abdominal tenderness (appropriate) and Yes Soft to palpation Auscultation: normal bowel sounds : Other: fundus firm Skin: General skin exam: normal color Neuro: General: patient oriented x3 Extrem: General: normal to inspection Psych: Appearance: grossly normal Affect: normal affect Attitude: cooperative
--- NOTE | 2025-05-13 13:30 | PC.NURSE ---
1315. Introductions were made, then consulted with patient to assess needs related to . Discussed with mother her plans to feed her and the experience so far. Encouraged mother to express any questions or concerns she has regarding feedings. Advised her to call out for a latch check or if she needs assistance waking or positioning baby. Reviewed the blue feeding worksheet for required output and feeding at least 8-12 times every 24 hours. Resources provided for inpatient and outpatient services with the feeding sheet, mom/baby guide, and name/number written on the communication board. Mother voiced understanding of information and will call if there is a request for assistance. Reported to the Primary RN?
[2025-05-13] MEDS: IRON SUCROSE COMPLEX 400 MG, IRON SUCROSE COMPLEX 100 MG in SODIUM CHLORIDE 0.9% IV 250 ML 78.57 MG IVPB (16:00)
[2025-05-13] MEDS: LIDOCAINE 5% PATCH 1 PATCH TRANSDERM (16:30)
[2025-05-13] MEDS: oxyCODONE HCL (*CRX) 5 MG TAB IR 10 MG PO (18:37)
[2025-05-13 19:50] VITALS: BP 114/68; PULSE 78; RESP 16; TEMP 36.7; O2SAT 99
[2025-05-14] MEDS: IBUPROFEN 600 MG TABLET PO ×3 (00:53→14:12)
[2025-05-14] MEDS: ACETAMINOPHEN 500 MG TABLET 1000 MG PO ×3 (00:53→14:12)
[2025-05-14] MEDS: DOCUSATE SODIUM 100 MG CAPSULE PO (07:07)
[2025-05-14] MEDS: MULTIVIT/MIN/PREN/FOL AC/IRON TABLET 1 TAB PO (07:08)
[2025-05-14] MEDS: SIMETHICONE 80 MG TAB.CHEW PO ×2 (07:08→14:12)
--- NOTE | 2025-05-14 08:51 | P.DS_ITS ---
DS: Admitting Diagnosis Discharge Date 05/14/25 <Merced Sawant MD - Last Filed: 05/14/25 11:31> Admitting Diagnosis intrauterine at term spontaneous rupture of membranes <Alton Gonzalez MD - Last Filed: 05/12/25 16:18> DS: Discharge Diagnosis Discharge Diagnosis (1) delivery delivered: Code(s): O82 - Encounter for delivery without indication <Alton Gonzalez MD - Last Filed: 05/12/25 16:18> Status: Acute <Alton Gonzalez MD - Last Filed: 05/12/25 16:18> OB - DS: Summary Hospital Course Hospital Course: 29-year-old female who presented at 39 weeks with spontaneous rupture of membranes. Labor was augmented with misoprostol and Pitocin. Cervix did not dilate past 3 cm. Patient reached 25 hours after rupture. Recurrent decelerations were noted. Decision was made to proceed with primary . Patient's postoperative course was uncomplicated. She was discharged home on day 2 <Alton Gonzalez MD - Last Filed: 05/12/25 16:18> OB Procedures : Ultrasound <Merced Sawant MD - Last Filed: 05/14/25 11:31> OB Procedures Intrapartum: low cervical, transverse <Merced Sawant MD - Last Filed: 05/14/25 11:31> OB Procedures: : None <Merced Sawant MD - Last Filed: 05/14/25 11:31> Peripartum Data Infant Delivery Method: Section <Merced Sawant MD - Last Filed: 05/14/25 11:31> Procedures: Procedures Operation Date: 05/12/25 09:20 Actual Procedure Side Surgeon p Section Bilateral Alton Gonzalez MD <Alton Gonzalez MD - Last Filed: 05/12/25 16:18> [place] 1: Gender: Male <Merced Sawant MD - Last Filed: 05/14/25 11:31> Disposition of : home <Merced Sawant MD - Last Filed: 05/14/25 11:31> Status at Discharge Functional status at discharge: independent ambulation <Merced Sawant MD - Last Filed: 05/14/25 11:31> Overall status at discharge: patient is back to baseline <Merced Sawant MD - Last Filed: 05/14/25 11:31> Time Spent with Patient Time attestation: Total time spent providing and/or coordinating discharge services: <Alton Gonzalez MD - Last Filed: 05/12/25 16:18> Exam Const: General: cooperative, comfortable and no acute distress <Merced Sawant MD - Last Filed: 05/14/25 11:31> Orientation/consciousness: patient oriented x3 <Merced Sawant MD - Last Filed: 05/14/25 11:31> Resp: Effort & Inspection: normal respiratory effort <Merced Sawant MD - Last Filed: 05/14/25 11:31> Auscultation: clear to auscultation bilaterally <Merced Sawant MD - Last Filed: 05/14/25 11:31> Cardio: Rate: regular rate <Merced Sawant MD - Last Filed: 05/14/25 11:31> GI: Inspection: non-distended <Merced Sawant MD - Last Filed: 05/14/25 11:31> GI Palp: No abdominal tenderness and Yes Soft to palpation <Merced carlos MD - Last Filed: 05/14/25 11:31> Auscultation: normal bowel sounds <Merced Sawant MD - Last Filed: 05/14/25 11:31> : Other: fundus firm <Merced Sawant MD - Last Filed: 05/14/25 11:31> Skin: General skin exam: normal color <Merced Sawant MD - Last Filed: 05/14/25 11:31> Neuro: General: patient oriented x3 <Merced Sawant MD - Last Filed: 05/14/25 11:31> Extrem: General: normal to inspection <Merced Sawant MD - Last Filed: 05/14/25 11:31> Psych: Appearance: grossly normal <Merced Sawant MD - Last Filed: 05/14/25 11:31> Affect: normal affect <Merced Sawant MD - Last Filed: 05/14/25 11:31> Attitude: cooperative <Merced Sawant MD - Last Filed: 05/14/25 11:31> DS: Data Data Completed and Pending Pending studies at discharge: Pending at discharge 05/12/25 11:15 Surgical [PTH] Routine <Alton Gonzalez MD - Last Filed: 05/12/25 16:18> Labs on day of discharge: Labs from last 24 hours 05/11/25 16:14 Membranes Rupture Rom plus positive <Alton Gonzalez MD - Last Filed: 05/12/25 16:18> Discharge Plan Discharge Attending physician on discharge: Merced Sawant <Alton Gonzalez MD - Last Filed: 05/12/25 16:18> Merced Sawant <Merced Sawant MD - Last Filed: 05/14/25 11:31> Discharging Clinician: Alton Gonzalez <Alton Gonzalez MD - Last Filed: 05/12/25 16:18> Alton Gonzalez <Merced Sawant MD - Last Filed: 05/14/25 11:31> Anticipated Discharge Date/Time: 05/14/25 15:00 <Alton Gonzalez MD - Last Filed: 05/12/25 16:18> Patient Disposition: Home <Alton Gonzalez MD - Last Filed: 05/12/25 16:18> Activity: as tolerated and pelvic rest <Alton Gonzalez MD - Last Filed: 05/12/25 16:18> as tolerated and pelvic rest <Merced Sawant MD - Last Filed: 05/14/25 11:31> Diet: regular <Alton Gonzalez MD - Last Filed: 05/12/25 16:18> regular <Merced Sawant MD - Last Filed: 05/14/25 11:31> Patient Instructions: Antibiotic Form, (DC) <Alton Gonzalez MD - Last Filed: 05/12/25 16:18> Patient Language: [place] <Alton Gonzalez MD - Last Filed: 05/12/25 16:18> Stand Alone Forms: General Discharge Information <Alton Gonzalez MD - Last Filed: 05/12/25 16:18> Follow-up/Referrals: Alton Gonzalez MD [Physician, [employer]F C[employer] HELPER] <Alton Gonzalez MD - Last Filed: 05/12/25 16:18> Discharge Medications: New oxycodone-acetaminophen 5-325 mg tablet 1 tablet PO Q6H PRN (Reason: pain) Qty: 28 0RF acetaminophen 500 mg Tablet 1,000 mg PO Q6HR Qty: 60 0RF docusate sodium 100 mg Capsule 100 mg PO BID Qty: 90 0RF ibuprofen 600 mg tablet 600 mg PO Q6H PRN (Reason: pain) Qty: 30 0RF Continued aspirin [Adult Low Dose Aspirin] 81 mg tablet,delayed release (DR/EC) 81 mg PO DAILY DHA 200 mg capsule PO ferrous sulfate 325 mg (65 mg iron) tablet 325 mg PO DAILY <Alton Gonzalez MD - Last Filed: 05/12/25 16:18> Date of admission: 05/11/25 10:10 <Alton Gonzalez MD - Last Filed: 05/12/25 16:18> Primary Care Provider: Alexa,Nadia Preston <Alton Gonzalez MD - Last Filed: 05/12/25 16:18> Admitting Provider: Juancarlos Nye <Alton Gonzalez MD - Last Filed: 05/12/25 16:18> Attending physician on admission: Juancarlos Nye <Alton Gonzalez MD - Last Filed: 05/12/25 16:18> Condition: Stable <Alton Gonzalez MD - Last Filed: 05/12/25 16:18>
--- NOTE | 2025-05-14 09:30 | PC.NURSE ---
Introductions were made, then consulted with patient to assess needs related to . Mother led the conversation with her?plans to feed?her and the?experience so far. Encouraged understanding of the benefits of skin to skin (demonstrating unwrapping infant and placing upright on her chest), stimulating with touch, responsive feeding, feeding on demand (aiming for 8-12 times in 24 hours, about every 2-3 hours), milk production, duration of feeding, signs of adequate intake/output and how to record on the feeding sheet. Mother works well with her infant with encouragement and education. Reviewed positioning and ear, shoulder, hip alignment, supporting the breast to facilitate a deep latch, asymmetrical latch (off-center), leading with the chin with a big, open, wide gape and body close to mother. Infant latched optimally to the [right] breast in [football] position. Education given to the mother of how to visualize the suckling (with good rocking jaw motion), swallows (dropping of the lower jaw) and how to listen for drinking at the breast. Infant was [able] to maintain latch without pain to mother protecting the nipple with optimal positioning and latching. slipped to the nipple after a few minutes and mom noted that there was a change in the comfort of the latch. She was able to latch infant again optimally. Mother voiced understanding of skin to skin, hand expressed colostrum, monitoring for infant intake with the feeding sheet, and to call if infant does not latch, or if there is discomfort with . Resources used for education were facilitated with the [mom and baby guide] and infant feeding sheet. Parents voiced understanding of information, demonstrated learning and will call if there is a request for assistance. They feel comfortable to go home their . Reported to the Primary RN.
[2025-05-14 09:50] VITALS: BP 115/68; PULSE 75; RESP 18; TEMP 37.1; O2SAT 98
--- NOTE | 2025-05-14 13:23 | WPDANLDPN2 ---
Anes-Prog Note L&D Date/Time: 05/14/25 13:23 Comfortable throughout: labor and section Neuraxial method: epidural Epidural/Spinal procedure site: clean & non-tender Neuro status: Neuro function grossly intact. Cardiovascular status: normal Respiratory status: normal Airway patency: baseline Mental status: baseline Post-Op hydration status: normal Vital Signs: Last Vital Signs Temp 98.1 F 05/13/25 19:50 Pulse 78 05/13/25 19:50 Resp 16 05/13/25 19:50 BP 114/68 05/13/25 19:50 Pulse Ox 99 05/13/25 19:50 O2 Del Method Room Air 05/13/25 19:50 Pain score (VAS): 0 Post-procedural complaints: none Patient feedback: Patient satisfied with anesthetic care.
--- NOTE | 2025-05-14 13:24 | WPDANLDNPN2 ---
Anes-Prog Note L&D-Neuraxial Date/Time: 05/14/25 13:24 Neuraxial medications: epidural PF morphine Opiod-related complaints: none Patient feedback: Patient satisfied with post-operative pain management.
[2025-05-14] MEDS: MEASLES,MUMPS,RUBELLA VACCINE 0.5 ML VIAL SUB-Q (14:12)
[2025-05-16 11:49] VITALS: BP 118/74; PULSE 80; RESP 18; TEMP 36.5; O2SAT 100
--- NOTE | 2025-05-16 15:37 | WPDHPUPDATE1 ---
History and Physical Update Update Date/Time: 05/16/25 15:37 History and Physical has been reviewed, including an updated exam of the patient. There are NO changes in the patient's condition. Risks, benefits, and alternatives have been discussed and questions answered. Patient agrees to proceed with procedure.
== END 2025-05-14 15:10 | disposition home or self-care (01) | DRG 540 ==
LOC: ANHOB2 05-14 11:31 → ANHLDR 05-17 08:11
PROVIDERS: Admitting Provider Student in an Organized Health Care Education/Training Program; PCP Physician Assistant; Visit Provider Obstetrics & Gynecology
PROC: 10D00Z1 Extraction of Products of Conception, Low, Open Approach (ICD-10-PCS; CPT 59514; principal; 2025-05-12 09:20)
DX: O42.12 Full-term premature rupture of membranes, onset of labor more than 24 hours following rupture (principal); Z3A.40 40 weeks gestation of pregnancy; Z37.0 Single live birth; O62.1 Secondary uterine inertia; O76 Abnormality in fetal heart rate and rhythm complicating labor and delivery; O69.81X0 Labor and delivery complicated by cord around neck, without compression, not applicable or unspecified; O99.824 Streptococcus B carrier state complicating childbirth
CPT/HCPCS: 36415; 84112; 85025; 86593; 86850; 86900; 86901; 88307; 90710; A9270; J0290; J1756; J1885; J2003; J2274; J2371; J2405; J2590; J2795; J7030; J7050; J7120